=== PATIENT | male | born 1955 | race Caucasian/White ===

== ENCOUNTER 2017-01-20 11:31 | Inpatient (IN) | payer OTHER ==
[~2017-01-20] VITALS: Ht 172.7 cm; Wt 79.0 kg
--- NOTE | 2017-01-20 12:23 | ERA ---
ER Documentation Chief Complaint Date/Time DATE: 01/20/17 TIME: 12:23 Chief Complaint CP X 2 WEEKS HPI The patient is a 61-year-old male, presenting to the ER because of left-sided chest pain radiating to the left upper back with only for the last 2 weeks. The history is obtained through the son because the patient has hearing impairment. He had similar symptoms previously, complains of intermittent headache for the last 2 weeks which he took Vicodin with some relief. He denies facial pain, neck pain, chest pain with exertion/vomiting/diaphoresis abdominal pain, dysuria, diarrhea. He smokes socially, denies drinking Past medical history: hearing, impairment, history of rheumatism, hypertension, atrial fibrillation Past surgical history: Left ear cochlear implant 4 years ago, valve replacement , tricuspid valve anuloplasty ROS All systems reviewed and are negative except as per history of present illness. Medications Home Meds Reported Medications Gabapentin* (Gabapentin*) 100 Mg Capsule, 100 MG PO BID, #90 CAP 01/20/17 Hydrocodone/Acetaminophen (Mary Alice 5-325 Tablet) 1 Each Tablet, 1 EACH PO Q12 Y for PAIN, TAB 01/20/17 Lisinopril* (Lisinopril*) 10 Mg Tablet, 10 MG PO DAILY, #30 TAB 01/20/17 Isosorbide Mononitrate* (Isosorbide Mononitrate*) 30 Mg Tab.er.24h, 30 MG PO DAILY, TAB 01/20/17 Furosemide* (Lasix*) 20 Mg Tablet, 20 MG PO DAILY, TAB 01/20/17 Atorvastatin Calcium* (Atorvastatin Calcium*) 20 Mg Tablet, 20 MG PO QHS, #30 TAB 01/20/17 Carvedilol* (Carvedilol*) 3.125 Mg Tablet, 3.125 MG PO BID, #60 TAB 01/20/17 Warfarin Sodium* (Coumadin*) 2.5 Mg Tablet, 2.5 MG PO DAILY, TAB 01/20/17 Allergies Allergies: Coded Allergies: No Known Allergy (Unverified , 01/20/17) Physical Exam Vitals Vital Signs Date Time Temp Pulse Resp B/P Pulse Ox O2 Delivery O2 Flow Rate FiO2 01/20/17 16:42 80 18 155/76 99 Room Air 01/20/17 11:42 97.7 90 18 166/87 99 Physical Exam Const: No acute distress. Head: Atraumatic. Eyes: Normal Conjunctiva. ENT: Normal External Ears, Nose and Mouth. Neck: Full range of motion. No meningismus. Resp: Clear to auscultation bilaterally. Cardio: Irregularly irregular Abd: Soft, non distended, normal bowel sounds, non tender. Skin: No petechiae or rashes. Back: No midline or flank tenderness. Ext: No cyanosis, or edema. Neur: Awake and alert. No focal deficit Psych: Normal Mood and Affect. Result Diagram: 01/20/17 1230 01/20/17 1230 Results 24 hrs Laboratory Tests Test 01/20/17 12:30 White Blood Count 7.410^3/ul Red Blood Count 4.8310^6/ul Hemoglobin 14.8g/dl Hematocrit 43.7% Mean Corpuscular Volume 90.5fl Mean Corpuscular Hemoglobin 30.6pg Mean Corpuscular Hemoglobin Concent 33.9g/dl Red Cell Distribution Width 13.0% Platelet Count 94994^3/UL Mean Platelet Volume 9.4fl Neutrophils % 51.2% Lymphocytes % 36.2% Monocytes % 9.9% Eosinophils % 1.5% Basophils % 0.8% Nucleated Red Blood Cells % 0.0/100WBC Neutrophils # 3.810^3/ul Lymphocytes # 2.710^3/ul Monocytes # 0.710^3/ul Eosinophils # 0.110^3/ul Basophils # 0.110^3/ul Nucleated Red Blood Cells # 0.010^3/ul Prothrombin Time 34.3Sec Prothrombin Time Ratio 2.7 INR International Normalized Ratio 3.33 Activated Partial Thromboplast Time 44.9Sec Sodium Level 145mmol/L Potassium Level 4.3mmol/L Chloride Level 108mmol/L Carbon Dioxide Level 23mmol/L Anion Gap 18 Blood Urea Nitrogen 16mg/dl Creatinine 1.24mg/dl Glucose Level 108mg/dl Calcium Level 9.6mg/dl Magnesium Level 2.0mg/dl Total Bilirubin 0.7mg/dl Direct Bilirubin 0.00mg/dl Indirect Bilirubin 0.7mg/dl Aspartate Amino Transf (AST/SGOT) 21IU/L Alanine Aminotransferase (ALT/SGPT) 33IU/L Alkaline Phosphatase 83IU/L Troponin I 0.014ng/ml Total Protein 8.3g/dl Albumin 4.8g/dl Globulin 3.50g/dl Albumin/Globulin Ratio 1.37 Current Medications Medications (Trade) Dose Ordered Sig/Ezequiel Route PRN Reason Start Time Stop Time Status Last Admin Dose Admin Ondansetron HCl (Zofran Inj) 4 mg ONCE STAT IV 01/20/17 12:33 01/20/17 12:35 DC 01/20/17 12:40 IV Flush 10 ml 10 ml STK-MED ONCE .ROUTE 01/20/17 13:20 01/20/17 13:21 DC 01/20/17 14:15 Sodium Chloride (NS) 100 ml @ ud STK-MED ONCE .ROUTE 01/20/17 13:20 01/20/17 13:21 DC 01/20/17 14:15 Iodixanol (Visipaque Locm) 100 ml STK-MED ONCE .ROUTE 01/20/17 13:20 01/20/17 13:21 DC 01/20/17 14:16 Iodixanol 100 ml 100 ml STK-MED ONCE .ROUTE 01/20/17 13:49 01/20/17 13:50 DC 01/20/17 14:16 Sodium Chloride (NS) 500 ml @ 500 mls/hr Q1H ONCE IV 01/20/17 14:00 01/20/17 14:59 DC 01/20/17 14:00 Atorvastatin Calcium (Lipitor) 20 mg QHS PO 01/20/17 21:00 Carvedilol (Coreg) 3.125 mg BID PO 01/20/17 21:00 Furosemide (Lasix) 20 mg DAILY PO 01/21/17 09:00 Gabapentin (Neurontin) 100 mg BID PO 01/20/17 21:00 Isosorbide Mononitrate (Imdur) 30 mg DAILY PO 01/21/17 09:00 Lisinopril (Zestril) 10 mg DAILY PO 01/21/17 09:00 Warfarin Sodium (Coumadin) 2.5 mg DAILY@17 PO 01/21/17 17:00 IV Flush (NS 3 ml) 3 ml PER PROTOCOL IV 01/20/17 16:30 Ondansetron HCl (Zofran Inj) 4 mg Q6H PRN IV NAUSEA AND/OR VOMITING 01/20/17 16:30 Nitroglycerin (Nitroglycerin (Sl Tab) 0.4 Mg) 1 tab Q5M PRN SL CHEST PAIN 01/20/17 16:30 Acetaminophen (Tylenol Tab) 650 mg Q6H PRN PO PAIN LEVEL 1-3 OR FEVER 01/20/17 16:30 Acetaminophen/ Hydrocodone Bitart (Mary Alice (5/325)) 1 tab Q6H PRN PO PAIN LEVEL 4-6 01/20/17 16:30 Morphine Sulfate (morphine) 2 mg Q4H PRN IV PAIN LEVEL 7-10 01/20/17 16:30 Docusate Sodium (Colace) 100 mg Q12H PRN PO CONSTIPATION 01/20/17 16:30 Magnesium Hydroxide (Milk Of Mag) 30 ml DAILY PRN PO CONSTIPATION 01/20/17 16:30 Bisacodyl (Dulcolax Supp) 10 mg DAILY PRN HI CONSTIPATION 01/20/17 16:30 Famotidine (Pepcid) 20 mg Q12 PO 01/20/17 21:00 Procedures/MDM EKG: At 11:35 PM read by emergency physician Rate/Rhythm: Atrial fibrillation 82 beats/min QRS, ST, T-waves: No ST elevation, no T inversion and nonspecific intraventricular block, inferolateral T abnormality Impression: Abnormal EKG EKG: At 12:33 PM read by emergency physician Rate/Rhythm: Atrial fibrillation 79 beats/min QRS, ST, T-waves: No ST elevation, no T inversion , inferolateral T abnormality Impression: Abnormal EKG [place] [id number] Radiology Main Line: [phone] DIAGNOSTIC IMAGING REPORT Patient: YAKELIN DUFFY : 1955 Age: 61 Sex: M MR #: [id number] DOS: 01/20/17 1239 Ordering MD: JUWAN RITCHIE MD Location: E/R Room/Bed: PROCEDURE: CTA Chest with IV contrast. CLINICAL INDICATION: Chest pain. TECHNIQUE: The study was performed utilizing a multidetector CT scanner. Direct spiral axial sections were obtained from the thoracic inlet through the upper abdomen before and after the injection of 160 cc Visipaque 320 intravenous contrast material and reformatted at 1.25 mm. 3D, coronal and sagittal reformations were obtained. The images were reviewed on a PACS workstation. DLP = 1212.1 mGy-cm.CTDiVol = 31.0, 14.6, 64.8, 14.6 mGy. One or more of the following post reduction techniques were used: - Automated exposure control. - Adjustment of the mA and/or Kv according to patient's size. - Use of iterative reconstruction technique COMPARISON: No prior studies are available for comparison. FINDINGS: No pulmonary arterial filling defects to indicate pulmonary embolus are identified. The thoracic aorta is patent throughout its entirety. No aneurysm or stenosis is identified. The origins of the great vessels from the arch of the aorta are widely patent. Normal filling of the visualized proximal portions of the great vessels is identified. Mild atherosclerosis is noted in the arch of the aorta and scattered in the descending thoracic aorta. Mild fat stranding is seen along the left lateral aspect of the aortic arch and extends superiorly around the origins and proximal portions of the left common carotid and left subclavian arteries. Heart is large. Markedly enlarged left atrium and dilated appearing left ventricle are observed. Replacement mitral and tricuspid valves are observed. No hilar or mediastinal lymphadenopathy is identified. Calcified granulomas are seen in the right paratracheal region. The visualized portions of the inferior thyroid appear unremarkable. The arterial vasculature of the mediastinum appears normal. The thoracic esophagus appears normal. Evaluation of the lung parenchyma is limited by motion. Dependent, subsegmental atelectasis is noted in both lungs. Severe paraseptal emphysematous changes are identified in the bilateral upper lobes. Bulla are identified at the right apex. A 5 mm nodule is seen in the periphery of the right upper lobe (series 7, image 53). Small calcified granuloma is seen in the posterior right upper lobe. Atelectasis is noted in the lingula. Calcified granulomas are identified at the left apex and in the lingula. Diffuse fatty infiltration of the liver is identified. The kidneys demonstrate normal, symmetric enhancement. 7 mm cyst is identified in the anterior cortex of the right kidney. Cortical scarring is noted in the superior pole of the right kidney. Mild degenerative changes are seen in the spine with mild scoliosis. Median sternotomy wires are seen in the sternum. The subcutaneous and muscular soft tissues surrounding the chest are unremarkable. IMPRESSION: No visualized pulmonary embolus. No visualized aortic aneurysm or dissection. Fat stranding seen along the left lateral aspect of the aortic arch that extends superiorly around the origins and proximal portions of the left common carotid and left subclavian arteries. Etiology of this fat stranding is uncertain. This could reflect focal mediastinal inflammation of uncertain etiology or could represent a small amount of mediastinal hemorrhage of uncertain origin. No active extravasation is visualized. Close continued follow- up to assess the stability of this finding is recommended. Cardiomegaly with a markedly enlarged left atrium and left ventricle and replacement mitral and tricuspid valves. Calcified granulomatous disease in the mediastinum and both lungs. Moderate emphysematous changes in both lungs. 5 mm nodule in the right upper lobe. Diffuse fatty infiltration of the liver. Small sub centimeter cyst in the cortex of the right kidney. No followup unless clinically warranted is needed. Degenerative changes in the spine. Guidelines for Management of Small Pulmonary Nodules Detected on CT Scans: A statement from the Fleischner Society Single Solid Nodule: <6mm(<100mm3): Low risk: No f/u. High risk: Optional CT at 12 months. Certain pts at high risk with suspicious nodule morphology, upper lobe location, or both may warrant 12 mo f/u. 6-8mm(100-250mm3): Low risk: CT at 6-[address] at 18-24 mos. High risk: CT at 6-[address] at 18-24 mos. >8mm(>250mm3): Consider CT, PET/CT, or tissue sampling at 3 mos. Multiple Solid Nodules: Use most susp nod to guide mgmt. F/u intervals may vary according to size/risk <6mm(<100mm3): Low risk: No f/u. High risk: Optional CT at 12 months. 6-8mm(100-250mm3): Low risk: CT at 3-[address] at 18-24 mos. High risk: CT at 3-[address] at 18-24 mos. >8mm(>250mm3): Low risk: CT at 3-[address] at 18-24 mos. High risk: CT at 3-[address] at 18-24 mos. Single Subsolid Nodule: Ground Glass: In certain susp nods <6mm, consider 2 and 4 yr f/u. If solid component increases or growth develops, consider resection. Otherwise: <6mm(<100mm3): Low risk: No f/u. High risk: CT at 6-12 mos to confirm persistence, then CT every 2 yrs until 5 yrs. Part Solid: Must be >or=6mm to be part solid. CT at 3-6 mos to confirm persistence. If unchanged and solid component still <6mm, do annual CT for 5 yrs. If solid component >=6mm, consider highly suspicious. Multiple Subsolid Nodules: <6mm(<100mm3): CT at 3-6 mos. If stable, consider CT at 2 and 4 yrs. Mult <6mm pure ground glass nods usually benign but consider f/u in selected high risk pts at 2 and 4 yrs. >=6mm(>100mm3): CT at 3-6 mos. Subseq management based on most susp nodule. Reference: Radiology 2017 Special Report Call report: A call report of the findings was made to Dr. Ritchie at 2:42 PM on 01/20/2017 . RPTAT: AA .Celestino Mittal MD, Date Time Electronically viewed and signed by .Celestino Mittal MD, MD on 01/20/2017 14:46 .P/ CC: JUWAN RITCHIE MD [place] [address] Radiology Main Line: [phone] DIAGNOSTIC IMAGING REPORT Patient: YAKELIN DUFFY : 1955 Age: 61 Sex: M MR #: [id number] DOS: 01/20/17 1223 Ordering MD: JUWAN RITCHIE MD Location: E/R Room/Bed: PROCEDURE: Chest x-ray CLINICAL INDICATION: Chest pain TECHNIQUE: Chest single view COMPARISON: None FINDINGS: There is moderate cardiomegaly and an sclerotic aortic calcification. There post thoracotomy changes for cardiac valve replacement. Pulmonary vessels are normal in caliber. There is linear left perihilar atelectasis/scarring. Lungs otherwise clear. Costophrenic angles sharp. Bony thorax is unremarkable. IMPRESSION: 1. Moderate cardiomegaly and mild atherosclerotic aortic calcification. 2. Linear left perihilar atelectasis/scarring. 3. Status post mitral valve replacement RPTAT: HH .Wellington Velez MD, Date Time Electronically viewed and signed by .Wellington Velez MD, MD on 01/20/2017 13:15 .W/ CC: JUWAN RITCHIE MD [place] [address] Radiology Main Line: [phone] DIAGNOSTIC IMAGING REPORT Patient: YAKELIN DUFFY : 1955 Age: 61 Sex: M MR #: [id number] DOS: 01/20/17 0000 Ordering MD: ELEONORA RUST Location: E/R Room/Bed: PROCEDURE: CT brain without contrast CLINICAL INDICATION: Headache TECHNIQUE: CT of the brain without contrast performed on a multidetector CT scanner, with multiplanar reformats. One or more of the following dose reduction techniques were used: Automated exposure control, adjustment in mA and / or kV according to patient size, use of iterative reconstructive technique. CTDIvol = 45 mGy; DLP = 720 mGy-cm. COMPARISON: None available FINDINGS: Right cochlear implant with associated artifacts present which somewhat limit evaluation. No acute intracranial hemorrhage is identified. No extra-axial fluid collection is seen. There is no mass effect. No midline shift is identified. The ventricles and sulci are mildly enlarged compatible with volume loss. There is a punctate peripheral calcification in the right frontal region. Visualized garcia-white junctions are preserved. Atherosclerotic calcifications of the proximal intracranial arteries are noted. Right mastoidectomy defect is seen. There is mild partial right mastoid air cell opacification. Mild mucosal thickening is seen in the frontal sinuses - recesses.. IMPRESSION: 1. Somewhat limited evaluation due to artifacts from right cochlear implant, without acute intracranial pathology identified. 2. Mild volume loss 3. Punctate cerebral calcification, which may be post infectious/inflammatory, possibly sequela of neurocysticercosis. RPTAT: VV .Hussein Baker MD, Date Time Electronically viewed and signed by .Hussein Baker MD, on 01/20/2017 17:17 .O/ CC: ELEONORA RUST EKG: at 11:35 pm Read by emergency physician Rate/Rhythm: Atrial Fibrillation 82 beats/min QRS, ST, T-waves: No ST elevation, no T inversion, nonspecific intraventricular conduction block, inferolateral T abnormality Impression: Abnormal EKG EKG: at 12:33 pm Read by emergency physician Rate/Rhythm: Atrial Fibrillation 79 beats/min QRS, ST, T-waves: No ST elevation, no T inversion, inferolateral T abnormality Impression: Abnormal EKG MEDICAL MAKING DECISION: The patient is a 61-year-old male, presenting with acute chest pain of unclear etiology. INR is 3.3. He also complains of chronic headache and brain CT was negative for any acute finding. He was treated with 1 inch of nitroglycerin ointment to the chest wall for acute chest pain with good response The differential diagnoses considered include but are not limited to mediastinal inflammation, mediastinal hemorrhage of uncertain origin, acute coronary syndrome, acute myocardial infarction, pericarditis, pulmonary embolism , aortic dissection, pneumonia, pleural effusion, pneumothorax, GERD, chest wall pain. Departure Diagnosis: Primary Impression: Chest pain Additional Impression: Pulmonary nodule, right Condition: Stable Comments I discussed the findings with the patient. I discussed the patient with his physician Dr. Rust at 3:30 pm who was made aware of the lab, the treatment, the patient condition. The patient is admitted to [facility]. He is unstable for transfer to [facility] until he is evaluated by cardiac surgeon JUWAN RITCHIE MD Jan 20, 2017 12:23
[2017-01-20] MEDS ORDERED: ONDANSETRON 4 MG INJ IV STA (12:33)
[2017-01-20 12:37] LABS: BASOPHIL # 0.1 10^3/ul (0.0-0.1); BASOPHILS % 0.8 % (0.0-2.0); EOSINOPHILS # 0.1 10^3/ul (0.0-0.5); EOSINOPHILS % 1.5 % (0.0-7.0); HEMATOCRIT 43.7 % (42.0-52.0); HEMOGLOBIN 14.8 g/dl (14.0-18.0); LYMPHOCYTES # 2.7 10^3/ul (0.8-2.9); LYMPHOCYTES % 36.2 % (15.0-51.0); MEAN CORPUSCULAR HEMOGLOBIN 30.6 pg (29.0-33.0); MEAN CORPUSCULAR HGB CONC 33.9 g/dl (32.0-37.0); MEAN CORPUSCULAR VOLUME 90.5 fl (82.0-101.0); MEAN PLATELET VOLUME 9.4 fl (7.4-10.4); MONOCYTE # 0.7 10^3/ul (0.3-0.9); MONOCYTES % 9.9 % (0.0-11.0); NEUTROPHIL # 3.8 10^3/ul (1.6-7.5); NEUTROPHILS % 51.2 % (39.0-77.0); PLATELET COUNT 175 10^3/UL (140-415); RED BLOOD COUNT 4.83 10^6/ul (4.70-6.10); WHITE BLOOD COUNT 7.4 10^3/ul (4.8-10.8)
[2017-01-20] MEDS ORDERED: CARV3.1260 PO (12:47)
[2017-01-20] MEDS ORDERED: ATOR20TA38 PO (12:47)
[2017-01-20] MEDS ORDERED: WARF2.5T PO (12:47)
[2017-01-20] MEDS ORDERED: ISOS30TA5 PO (12:48)
[2017-01-20] MEDS ORDERED: LISI10TA2 PO (12:48)
[2017-01-20] MEDS ORDERED: FURO-110 PO (12:48)
[2017-01-20] MEDS ORDERED: HYDR-906 PO (12:49)
[2017-01-20] MEDS ORDERED: GABA100C14 PO (12:49)
[2017-01-20 12:59] LABS: CALCIUM 9.4 mg/dl (8.4-10.2); CREATININE 1.26 mg/dl (0.61-1.24); POTASSIUM 4.3 mmol/L (3.5-5.1)
[2017-01-20 13:10] LABS: TROPONIN-I 0.014 ng/ml (0.00-0.12)
--- NOTE | 2017-01-20 13:16 | RADRPT ---
PROCEDURE: Chest x-ray CLINICAL INDICATION: Chest pain TECHNIQUE: Chest single view COMPARISON: None FINDINGS: There is moderate cardiomegaly and an sclerotic aortic calcification. There post thoracotomy changes for cardiac valve replacement. Pulmonary vessels are normal in caliber. There is linear left perihi lar atelectasis/scarring. Lungs otherwise clear. Costophrenic angles sharp. Bony thorax is unremarka ble. IMPRESSION: 1. Moderate cardiomegaly and mild atherosclerotic aortic calcification. 2. Linear left perihilar atelectasis/scarring. 3. Status post mitral valve replacement RPTAT: HH .Wellington Velez MD, MD Date Time Electronically viewed and signed by .Wellington Velez MD, on 01/20/2017 13:15 .W/
[2017-01-20 13:18] LABS: INR 3.33; PROTIME 34.3 Sec (12.2-14.2); PT RATIO 2.7
[2017-01-20 13:19] LABS: PARTIAL THROMBOPLASTIN TIME 44.9 Sec (25.0-35.0)
[2017-01-20] MEDS ORDERED: IODIXANOL LOCM 100 ML BTL ONE ×2 (13:20→13:49)
[2017-01-20] MEDS ORDERED: SOD CHLORIDE 0.9% 100 ML ONE (13:20)
[2017-01-20 13:21] LABS: ALBUMIN 4.8 g/dl (3.3-4.9); ALBUMIN/GLOBULIN RATIO 1.37; BILIRUBIN,INDIRECT 0.7 mg/dl (0-1.1); BILIRUBIN,TOTAL 0.7 mg/dl (0.2-1.3); CALCIUM 9.6 mg/dl (8.4-10.2); CREATININE 1.24 mg/dl (0.61-1.24); POTASSIUM 4.3 mmol/L (3.5-5.1); TOTAL PROTEIN 8.3 g/dl (6.1-8.1)
[2017-01-20] MEDS ORDERED: SOD CHLORIDE 0.9% 500 ML IV ONE (14:00)
--- NOTE | 2017-01-20 14:46 | RADRPT ---
PROCEDURE: CTA Chest with IV contrast. CLINICAL INDICATION: Chest pain. TECHNIQUE: The study was performed utilizing a multidetector CT scanner. Direct spiral axial secti ons were obtained from the thoracic inlet through the upper abdomen before and after the injection o f 160 cc Visipaque 320 intravenous contrast material and reformatted at 1.25 mm. 3D, coronal and sag ittal reformations were obtained. The images were reviewed on a PACS workstation. DLP = 1212.1 mGy- cm.CTDiVol = 31.0, 14.6, 64.8, 14.6 mGy. One or more of the following post reduction techniques were used: - Automated exposure control. - Adjustment of the mA and/or Kv according to patient's size. - Use of iterative reconstruction technique COMPARISON: No prior studies are available for comparison. FINDINGS: No pulmonary arterial filling defects to indicate pulmonary embolus are identified. The thoracic aorta is patent throughout its entirety. No aneurysm or stenosis is identified. The macy gins of the great vessels from the arch of the aorta are widely patent. Normal filling of the visual ized proximal portions of the great vessels is identified. Mild atherosclerosis is noted in the arch of the aorta and scattered in the descending thoracic aorta. Mild fat stranding is seen along the left lateral aspect of the aortic arch and extends superiorly a round the origins and proximal portions of the left common carotid and left subclavian arteries. Heart is large. Markedly enlarged left atrium and dilated appearing left ventricle are observed. Rep lacement mitral and tricuspid valves are observed. No hilar or mediastinal lymphadenopathy is ident ified. Calcified granulomas are seen in the right paratracheal region. The visualized portions of t he inferior thyroid appear unremarkable. The arterial vasculature of the mediastinum appears normal. The thoracic esophagus appears normal. Evaluation of the lung parenchyma is limited by motion. Dependent, subsegmental atelectasis is noted in both lungs. Severe paraseptal emphysematous changes are identified in the bilateral upper lobes. Bulla are identified at the right apex. A 5 mm nodule is seen in the periphery of the right upper l obe (series 7, image 53). Small calcified granuloma is seen in the posterior right upper lobe. Atelectasis is noted in the lingula. Calcified granulomas are identified at the left apex and in the lingula. Diffuse fatty infiltration of the liver is identified. The kidneys demonstrate normal, symmetric enh ancement. 7 mm cyst is identified in the anterior cortex of the right kidney. Cortical scarring is n oted in the superior pole of the right kidney. Mild degenerative changes are seen in the spine with mild scoliosis. Median sternotomy wires are see n in the sternum. The subcutaneous and muscular soft tissues surrounding the chest are unremarkable . IMPRESSION: No visualized pulmonary embolus. No visualized aortic aneurysm or dissection. Fat stranding seen along the left lateral aspect of the aortic arch that extends superiorly around t he origins and proximal portions of the left common carotid and left subclavian arteries. Etiology o f this fat stranding is uncertain. This could reflect focal mediastinal inflammation of uncertain et iology or could represent a small amount of mediastinal hemorrhage of uncertain origin. No active ex travasation is visualized. Close continued follow-up to assess the stability of this finding is kyaw mmended. Cardiomegaly with a markedly enlarged left atrium and left ventricle and replacement mitral and tric uspid valves. Calcified granulomatous disease in the mediastinum and both lungs. Moderate emphysematous changes in both lungs. 5 mm nodule in the right upper lobe. Diffuse fatty infiltration of the liver. Small sub centimeter cyst in the cortex of the right kidney. No followup unless clinically warranted is needed. Degenerative changes in the spine. Guidelines for Management of Small Pulmonary Nodules Detected on CT Scans: A statement from the Flei schner Society Single Solid Nodule: <6mm(<100mm3): Low risk: No f/u. High risk: Optional CT at 12 months. Certain pts at high risk with suspicious nodule morphology, upper lobe location, or both may warrant 12 mo f/ u. 6-8mm(100-250mm3): Low risk: CT at 6-[address] at 18-24 mos. High risk: CT at 6-[address] at 18-24 mos. >8mm(>250mm3): Consider CT, PET/CT, or tissue sampling at 3 mos. Multiple Solid Nodules: Use most susp nod to guide mgmt. F/u intervals may vary according to size/r isk <6mm(<100mm3): Low risk: No f/u. High risk: Optional CT at 12 months. 6-8mm(100-250mm3): Low risk: CT at 3-[address] at 18-24 mos. High risk: CT at 3-[address] at 18-24 mos. >8mm(>250mm3): Low risk: CT at 3-[address] at 18-24 mos. High risk: CT at 3-[address] at 18-24 mos. Single Subsolid Nodule: Ground Glass: In certain susp nods <6mm, consider 2 and 4 yr f/u. If solid component increases or growth develops, consider resection. Otherwise: <6mm(<100mm3): Low risk: No f/u. High risk: CT at 6-12 mos to confirm persistence, then CT every 2 yrs until 5 yrs. Part Solid: Must be >or=6mm to be part solid. CT at 3-6 mos to confirm persistence. If unchang ed and solid component still <6mm, do annual CT for 5 yrs. If solid component >=6mm, consider highly suspicious. Multiple Subsolid Nodules: <6mm(<100mm3): CT at 3-6 mos. If stable, consider CT at 2 and 4 yrs. Mult <6mm pure ground gla ss nods usually benign but consider f/u in selected high risk pts at 2 and 4 yrs. >=6mm(>100mm3): CT at 3-6 mos. Subseq management based on most susp nodule. Reference: Radiology 2017 Special Report Call report: A call report of the findings was made to Dr. Curry at 2:42 PM on 01/20/2017 . RPTAT: AA .Celestino Mittal MD, Date Time Electronically viewed and signed by .Celestino Mittal MD, MD on 01/20/2017 14:46 .P/
--- NOTE | 2017-01-20 16:10 | HP ---
Date/Time of Note Date/Time of Note DATE: 01/20/17 TIME: 16:10 Assessment/Plan VTE Prophylaxis VTE Prophylaxis Intervention: other (Already on Coumadin) Lines/Catheters IV Catheter Type (from [facility] Saline Lock Assessment/Plan Assessment/Plan 61-year-old male with: 1. Left-sided chest pain, radiating to the back, findings on CT angiogram nonspecific but concerning for possible vascular abnormality or vasculopathy. Given the patient's cardiac history, we will rule him out for acute coronary syndrome. He does have a mechanical valve with INR within therapeutic range, I will continue his Coumadin for now. I will consult cardiothoracic surgery to review CT angiogram and further recommendations. Atrial fibrillation is controlled, continue current medication. Blood pressure control. Patient admitted to telemetry. 2. Cardiomyopathy, previous history of rheumatic fever based on records from [facility], status post valvular surgeries with mitral valve replacement with mechanical valve and also tricuspid annuloplasty approximately 20 years ago. Check 2D echocardiogram to evaluate ejection fraction, patient currently on Lasix as an outpatient. Continue Coumadin with goal INR 2.5-3.5 3. Severe headaches, seems to be primarily left-sided also, CAT scan of the head pending to rule out acute bleed. If that is negative likely patient will need CT angiogram of the head and neck to rule out vascular abnormalities. ESR and CRP pending Supportive care 4. Hypertension: Continue current medications 5. Hyperlipidemia: Continue statin therapy, check fasting lipid panel. Prophylaxis: Already anticoagulated on Coumadin, Pepcid for GI prophylaxis Disposition: CT head noncontrast pending, patient may need CT of the head and neck also, CT surgery to reevaluate CT angiogram findings in order to make sure that patient not having bleeding currently. 2D echocardiogram pending HPI/ROS Admit Date/Time Admit Date/Time Hx of Present Illness Chief complaint: Left-sided chest pain, severe headaches. History of presenting illness: This is a 61-year-old male with previous history of rheumatic fever and mitral and tricuspid valve replacement, mitral valve is mechanical, this was done in [facility] in 1996 and patient reports is been stable since then, started having severe headaches and chest pressure radiating to his back over the past 2 weeks. The symptoms have worsened over the past 48 hours, patient had his worst headache 2 days ago with ongoing nausea no photophobia no double vision. The patient also reports that he was vomiting and the pain was unbearable, she also reports episodes of chest pressure left side of the chest radiating to his back, intermittent over the past 2 weeks but worsened today. He reports nausea intermittently over the past couple of weeks and dry heaving over the past 2 days with couple episode of vomiting just bilious. No fevers, no chills, no previous history of migraine headaches. Patient has lost his hearing on his right ear and has a cochlear implant that was placed 4 years ago but did not have his hearing according to the patient. CTA chest shows Fat stranding seen along the left lateral aspect of the aortic arch that extends superiorly around the origins and proximal portions of the left common carotid and left subclavian arteries. Etiology of this fat stranding is uncertain. This could reflect focal mediastinal inflammation of uncertain etiology or could represent a small amount of mediastinal hemorrhage of uncertain origin. it is unclear if this is explaining his symptoms. Regarding his headache the patient also describes a left-sided headache that starts in the left occipital area of his head and seems to be wrapping to the frontal on the left side. CAT scan of the head noncontrast is pending, likely will need a CT angiogram of head and neck to rule out any other abnormalities. I will check ESR and CRP to rule out inflammatory disease. Patient has been on Coumadin, he has atrial fibrillation rate control, INR is therapeutic at 3.4, likely he is goal INR is 2.5-3.5 given his mechanical mitral valve. CT surgery will be consulted to review findings on CT angiogram ROS Constitutional: nausea Respiratory: no complaints Cardiovascular: chest pain (Left-sided radiating to his back) Gastrointestinal: no complaints Genitourinary: no complaints Musculoskeletal: no complaints Skin: no complaints Neurologic: headache, other (Chronic hearing loss) Endocrine: no complaints Lymphatic: no complaints Psychological: no complaints PMH/Family/Social Past Medical History History of rheumatic fever, reported mitral stenosis status post mitral valve replacement with mechanical valve and tricuspid valve annuloplasty Cardiomyopathy, unknown ejection fraction Chronic atrial fibrillation Chronic anticoagulation Hyperlipidemia Hypertension Tobacco use Past Surgical History Status post mitral valve replacement with mechanical valve, tricuspid valve annuloplasty in July 1996 in [facility] Status post right cochlear implant, 5-6 years ago Family History Significant Family History: no pertinent family hx Social History Alcohol Use: none Smoking Status: Current every day smoker (Smokes 2-3 cigarettes a day, patient really never quit.) Drug Use: none Exam/Review of Systems Vital Signs Vitals Vital Signs Date Time Temp Pulse Resp B/P Pulse Ox O2 Delivery O2 Flow Rate FiO2 01/20/17 11:42 97.7 90 18 166/87 99 Exam Constitutional: alert, oriented, other (Right cochlear implant), well developed Respiratory: clear to auscultation, normal air movement Cardiovascular: murmurs/extra sounds (Mechanical click from mechanical valve), nl pulses, regular rate and rhythm Gastrointestinal: non-tender, soft Musculoskeletal: nl extremities to inspection, other (No edema, clubbing or cyanosis) Extremities: normal pulses Neurological: MACHINE II CUTTER II-XII intact, nl mental status, nl speech, nl strength Labs Result Diagram: 01/20/17 1230 01/20/17 1230 Medications Medications Home medications : Refer to medication reconciliation on admission Procedures Procedures PROCEDURE: CTA Chest with IV contrast. CLINICAL INDICATION: Chest pain. TECHNIQUE: The study was performed utilizing a multidetector CT scanner. Direct spiral axial sections were obtained from the thoracic inlet through the upper abdomen before and after the injection of 160 cc Visipaque 320 intravenous contrast material and reformatted at 1.25 mm. 3D, coronal and sagittal reformations were obtained. The images were reviewed on a PACS workstation. DLP = 1212.1 mGy-cm.CTDiVol = 31.0, 14.6, 64.8, 14.6 mGy. One or more of the following post reduction techniques were used: - Automated exposure control. - Adjustment of the mA and/or Kv according to patient's size. - Use of iterative reconstruction technique COMPARISON: No prior studies are available for comparison. FINDINGS: No pulmonary arterial filling defects to indicate pulmonary embolus are identified. The thoracic aorta is patent throughout its entirety. No aneurysm or stenosis is identified. The origins of the great vessels from the arch of the aorta are widely patent. Normal filling of the visualized proximal portions of the great vessels is identified. Mild atherosclerosis is noted in the arch of the aorta and scattered in the descending thoracic aorta. Mild fat stranding is seen along the left lateral aspect of the aortic arch and extends superiorly around the origins and proximal portions of the left common carotid and left subclavian arteries. Heart is large. Markedly enlarged left atrium and dilated appearing left ventricle are observed. Replacement mitral and tricuspid valves are observed. No hilar or mediastinal lymphadenopathy is identified. Calcified granulomas are seen in the right paratracheal region. The visualized portions of the inferior thyroid appear unremarkable. The arterial vasculature of the mediastinum appears normal. The thoracic esophagus appears normal. Evaluation of the lung parenchyma is limited by motion. Dependent, subsegmental atelectasis is noted in both lungs. Severe paraseptal emphysematous changes are identified in the bilateral upper lobes. Bulla are identified at the right apex. A 5 mm nodule is seen in the periphery of the right upper lobe (series 7, image 53). Small calcified granuloma is seen in the posterior right upper lobe. Atelectasis is noted in the lingula. Calcified granulomas are identified at the left apex and in the lingula. Diffuse fatty infiltration of the liver is identified. The kidneys demonstrate normal, symmetric enhancement. 7 mm cyst is identified in the anterior cortex of the right kidney. Cortical scarring is noted in the superior pole of the right kidney. Mild degenerative changes are seen in the spine with mild scoliosis. Median sternotomy wires are seen in the sternum. The subcutaneous and muscular soft tissues surrounding the chest are unremarkable. IMPRESSION: No visualized pulmonary embolus. No visualized aortic aneurysm or dissection. Fat stranding seen along the left lateral aspect of the aortic arch that extends superiorly around the origins and proximal portions of the left common carotid and left subclavian arteries. Etiology of this fat stranding is uncertain. This could reflect focal mediastinal inflammation of uncertain etiology or could represent a small amount of mediastinal hemorrhage of uncertain origin. No active extravasation is visualized. Close continued follow- up to assess the stability of this finding is recommended. Cardiomegaly with a markedly enlarged left atrium and left ventricle and replacement mitral and tricuspid valves. Calcified granulomatous disease in the mediastinum and both lungs. Moderate emphysematous changes in both lungs. 5 mm nodule in the right upper lobe. Diffuse fatty infiltration of the liver. Small sub centimeter cyst in the cortex of the right kidney. No followup unless clinically warranted is needed. Degenerative changes in the spine. EKG: Reviewed, both EKGs in the emergency department showing controlled atrial fibrillation with heart rate 70-80s. No acute ischemic changes. ELEONORA RUST Jan 20, 2017 16:10
[2017-01-20] MEDS ORDERED: NACL 0.9% 3 ML SYG IV SCH (16:30)
[2017-01-20] MEDS ORDERED: NITROGLYCERIN (SL) 0.4 MG TAB SL PRN (16:30)
[2017-01-20] MEDS ORDERED: ONDANSETRON 4 MG INJ IV PRN (16:30)
[2017-01-20] MEDS ORDERED: ACETAMINOPHEN 325 MG TAB PO PRN (16:30)
[2017-01-20] MEDS ORDERED: BISACODYL 10 MG SUPP PR PRN (16:30)
[2017-01-20] MEDS ORDERED: DOCUSATE SODIUM 100 MG CAP PO PRN (16:30)
[2017-01-20] MEDS ORDERED: MAGNESIUM HYDROXIDE 30ML CUP PO PRN (16:30)
--- NOTE | 2017-01-20 17:18 | RADRPT ---
PROCEDURE: CT brain without contrast CLINICAL INDICATION: Headache TECHNIQUE: CT of the brain without contrast performed on a multidetector CT scanner, with multiplan ar reformats. One or more of the following dose reduction techniques were used: Automated exposure control, adjustment in mA and / or kV according to patient size, use of iterative reconstructive lina hnique. CTDIvol = 45 mGy; DLP = 720 mGy-cm. COMPARISON: None available FINDINGS: Right cochlear implant with associated artifacts present which somewhat limit evaluation. No acute i ntracranial hemorrhage is identified. No extra-axial fluid collection is seen. There is no mass effect. No midline shift is identified. The ventricles and sulci are mildly enlarged compatible with volume loss. There is a punctate peripheral calcification in the right frontal region. Visualized garcia-white junc tions are preserved. Atherosclerotic calcifications of the proximal intracranial arteries are noted. Right mastoidectomy defect is seen. There is mild partial right mastoid air cell opacification. Mild mucosal thickening is seen in the frontal sinuses - recesses.. IMPRESSION: 1. Somewhat limited evaluation due to artifacts from right cochlear implant, without acute intracra nial pathology identified. 2. Mild volume loss 3. Punctate cerebral calcification, which may be post infectious/inflammatory, possibly sequela of neurocysticercosis. RPTAT: VV .Hussein Baker MD, Date Time Electronically viewed and signed by .Hussein Baker MD, MD on 01/20/2017 17:17 .O/
[2017-01-20] MEDS ORDERED: NITROGLYCERIN 2% 1 GM OINT PKT TD ONE (18:30)
[2017-01-20] MEDS: HYDROCODONE/APAP (5/325) TAB PO PRN (20:53)
[2017-01-20] MEDS: morphine 2 MG INJ IV PRN (20:57)
[2017-01-20 21:43] LABS: TROPONIN-I 0.017 ng/ml (0.00-0.12)
[2017-01-20 21:45] LABS: CK-MB 1.23 ng/ml (0.0-2.4)
[2017-01-20 22:23] VITALS: TEMP 97.7
[2017-01-20 23:00] VITALS: BP 149/68; PULSE 83; RESP 20; Ht 172.7 cm; Wt 79.0 kg
[2017-01-21] VITALS (14 sets, daily range): BP systolic 103–149; BP diastolic 50–68; PULSE 40–134; RESP 17–18
[2017-01-21] MEDS: FAMOTIDINE 20 MG TAB PO SCH ×3 (00:53→21:46)
[2017-01-21] MEDS: ATORVASTATIN 20 MG TAB PO SCH ×2 (00:53→21:46)
[2017-01-21] MEDS: GABAPENTIN 100 MG CAP PO SCH ×3 (00:53→21:46)
[2017-01-21 01:54] LABS: TROPONIN-I 0.037 ng/ml (0.00-0.12)
[2017-01-21 01:59] LABS: CK-MB 1.44 ng/ml (0.0-2.4)
[2017-01-21] MEDS: morphine 2 MG INJ IV PRN (04:26)
[2017-01-21 07:39] LABS: BASOPHIL # 0.1 10^3/ul (0.0-0.1); BASOPHILS % 0.7 % (0.0-2.0); EOSINOPHILS # 0.1 10^3/ul (0.0-0.5); EOSINOPHILS % 1.4 % (0.0-7.0); HEMATOCRIT 37.3 % (42.0-52.0); HEMOGLOBIN 12.3 g/dl (14.0-18.0); LYMPHOCYTES % 27.5 % (15.0-51.0); MEAN CORPUSCULAR HEMOGLOBIN 29.9 pg (29.0-33.0); MEAN CORPUSCULAR VOLUME 90.8 fl (82.0-101.0); MEAN PLATELET VOLUME 10.2 fl (7.4-10.4); MONOCYTE # 0.7 10^3/ul (0.3-0.9); MONOCYTES % 9.9 % (0.0-11.0); NEUTROPHIL # 4.3 10^3/ul (1.6-7.5); NEUTROPHILS % 60.1 % (39.0-77.0); PLATELET COUNT 138 10^3/UL (140-415); RED BLOOD COUNT 4.11 10^6/ul (4.70-6.10); RED CELL DISTRIBUTION WIDTH 13.2 % (11.5-14.5); WHITE BLOOD COUNT 7.2 10^3/ul (4.8-10.8)
[2017-01-21 07:56] LABS: INR 3.56; PROTIME 36.2 Sec (12.2-14.2); PT RATIO 2.8
[2017-01-21 08:10] LABS: CALCIUM 8.8 mg/dl (8.4-10.2); CHOL/HDL RATIO 2.8 RATIO; CREATININE 1.07 mg/dl (0.61-1.24); MAGNESIUM 1.9 mg/dl (1.7-2.5)
[2017-01-21] MEDS: LISINOPRIL 10 MG TAB PO SCH (09:29)
[2017-01-21] MEDS: FUROSEMIDE 20 MG TAB PO SCH (09:29)
[2017-01-21] MEDS: ISOSORBIDE MONONITRATE(SR)30 MG TAB PO SCH (09:29)
[2017-01-21] MEDS: HYDROCODONE/APAP (5/325) TAB PO PRN (11:09)
--- NOTE | 2017-01-21 12:46 | RADRPT ---
Echocardiogram Report Patient Name: YAKELIN DUFFY Gender: Male Date: 1955 Study Date: 21-Jan-2017 [employer] Helper: Rj [facility] Location: 5563-A Ref. Physician: CURTIS RUST Quality: Adequate Procedures: Transthoracic echocardiogram with complete 2D, M-Mode, and doppler examination. Indications: Chest pain and hx of valve replacement. 2D/M Mode Doppler Measurement Value Normal Ranges Measurement Value Normal Ranges LVIDd 2D 6.7 3.5 - 5.6 cm AV Peak Bashir 1.2 m/sec LVIDs 2D 5.9 2.1 - 4.1 cm AV Peak PG 6.0 mmHg FS 2D 11.9 % AI Peak PG 34.0 mmHg LVPWd 2D 1.5 0.6 - 1.1 cm AI Peak Bashir 2.9 m/sec IVSd 2D 1.5 0.6 - 1.1 cm AI PHT 725.0 msec IVS/LVPW 2D 1.0 LVOT Peak Bashir 0.7 m/sec AoR Diam 2D 3.1 2.0 - 3.7 cm LVOT Peak PG 2.0 mmHg LA/Ao 2D 2 0 - 1 MV E Peak Bashir 1.7 m/sec EDV 2D 294.0 cm3 MV Peak Bashir 1.8 m/sec ESV 2D 201.0 cm3 MV Peak PG 13.0 mmHg LA Dimen 2D 6.0 2.3 - 4.0 cm MV Mean Bashir 1.0 m/sec MV Mean PG 5.0 mmHg MV Decel Time 243 msec MV VTI 27.4 cm MR Peak PG 177.0 mmHg MR Peak Bashir 6.7 m/sec TR Peak Bashir 2.9 m/sec TR Peak PG 34.0 mmHg RVSP 49.0 mmHg Findings Left Ventricle: Moderate concentric left ventricular hypertrophy. Moderate enlargement of left ventricle cavity. Severe global left ventricular systolic dysfunction. Ejection fraction is visually estimated at 25 %. Right Ventricle: Normal right ventricular size. Mild right ventricular systolic dysfunction. Left Atrium: There is severe enlargement of left atrium. Right Atrium: The right atrium is normal in size. Mitral Valve: Mitral Valve Mechanical Prosthesis. MeanPG 5.00 mmHg. Aortic Valve: No significant aortic stenosis. Aortic cusps appear mildly calcified. Mild aortic valve regurgitation. Tricuspid Valve: Normal appearance of the tricuspid valve. Estimated peak PA systolic pressure 49 mmHg. There is mild tricuspid regurgitation. Pulmonic Valve: Normal pulmonic valve appearance. There is trace pulmonic regurgitation. Pericardium: Normal pericardium with no significant pericardial effusion. Aorta: Normal aortic root. IVC: Dilated inferior vena cava with poor inspiratory collapse consistent with elevated right atrial pressures. Conclusions 1.Moderate concentric left ventricular hypertrophy. Moderate enlargement of left ventricle cavity. Severe global left ventricular systolic dysfunction. Ejection fraction is visually estimated at 25 %. 2.Normal right ventricular size. Mild right ventricular systolic dysfunction. 3.There is severe enlargement of left atrium. 4.The right atrium is normal in size. 5.Mitral Valve Mechanical Prosthesis. MeanPG 5.00 mmHg. 6.No significant aortic stenosis. Aortic cusps appear mildly calcified. Mild aortic valve regurgitation. 7.Normal appearance of the tricuspid valve. Estimated peak PA systolic pressure 49 mmHg. There is mild tricuspid regurgitation. 8.Normal pericardium with no significant pericardial effusion. Electronically Signed By: Salomon Mehta 21-Jan-2017 12:45:57 -0700 Patient Name: YAKELIN DUFFY Study Date: 21-Jan-[id number]
--- NOTE | 2017-01-21 13:37 | PN ---
Date/Time of Note Date/Time of Note DATE: 01/21/17 TIME: 13:09 Assessment/Plan VTE Prophylaxis VTE Prophylaxis Intervention: other (On Coumadin with INR 3.5, status post mitral mechanical valve) Lines/Catheters IV [facility] [place] [facility] Assessment/Plan Assessment/Plan 61-year-old male with: 1. Left-sided chest pain, radiating to the back, findings on CT angiogram nonspecific but concerning for possible vascular abnormality or vasculopathy. Cardiac enzymes negative 3, however patient with ejection fraction of 25%, he is in A. fib but has a tendency to drop his heart rate down to the 40s with delayed response Cardiology evaluation pending. CT surgery evaluation pending. Continue current medications for now. 2. Cardiomyopathy, previous history of rheumatic fever based on records from [facility], status post valvular surgeries with mitral valve replacement with mechanical valve and also tricuspid annuloplasty approximately 20 years ago. 2D echocardiogram as expected with impaired ejection fraction down to 25%, continue diuretics for now. Given the delayed response with his atrial fibrillation, will consult cardiology for evaluation. Continue Coumadin with goal INR 2.5-3.5 3. Chronic atrial fibrillation, again observed episodes of delayed response, on Coumadin already, INR of 3.5 today. Will hold his Coumadin dosing today. 4. Severe headaches, seems to be primarily left-sided also, CAT scan of the head noncontrast negative however patient again last night apparently had a episode of severe left-sided headache, CT angiogram of the head and neck pending. ESR and CRP within normal limit. 4. Hypertension: Continue current medications 5. Hyperlipidemia: Continue statin therapy. Prophylaxis: Already anticoagulated on Coumadin, Pepcid for GI prophylaxis Disposition: CTA head and neck, CT surgery to reevaluate CT angiogram findings in order to make sure that patient not having bleeding currently. Cardiology evaluation. Subjective 24 Hr Interval Summary Free Text/Dictation Patient with hearing impairment, right cochlear implant in place. Still complaining of a 5 out of 10 left-sided headache, occipital and going to the peritoneal frontal area, or left-sided seems to be originating at the back of his head. CTA head and neck pending. Patient to be evaluated by cardiothoracic surgery today regarding CT findings. Given ejection fraction of 25%, cardiology evaluation also pending. Patient in A. fib, occasional heart rate in the 40s. Exam/Review of Systems Vital Signs Vitals Vital Signs Date Time Temp Pulse Resp B/P Pulse Ox O2 Delivery O2 Flow Rate FiO2 01/21/17 12:06 97.4 65 18 103/50 93 01/20/17 23:00 Room Air Intake and Output 01/20/17 01/20/17 01/21/17 15:00 23:00 07:00 Intake Total 200 ml Balance 200 ml Exam Constitutional: alert, oriented, well developed Respiratory: clear to auscultation, normal air movement Cardiovascular: irregular rhythm (Atrial fibrillation, occasional heart rate in the 40s) Gastrointestinal: non-tender, soft Musculoskeletal: nl extremities to inspection Extremities: normal pulses Neurological: [employer] II-XII intact, nl mental status, nl speech, nl strength Results Result Diagram: 01/21/1738 01/21/1738 Results 24 hrs Laboratory Tests Test 01/20/17 20:40 01/20/17 20:46 01/21/17 00:58 01/21/17 06:38 Creatine Kinase 87 95 Creatine Kinase Index 1.4 1.5 Creatinine Kinase MB (Mass) 1.23 1.44 Troponin I 0.017 0.037 C-Reactive Protein < 0.5 White Blood Count 7.2 Red Blood Count 4.11 L Hemoglobin 12.3 L Hematocrit 37.3 L Mean Corpuscular Volume 90.8 Mean Corpuscular Hemoglobin 29.9 Mean Corpuscular Hemoglobin Concent 33.0 Red Cell Distribution Width 13.2 Platelet Count 138 #L Mean Platelet Volume 10.2 Neutrophils % 60.1 Lymphocytes % 27.5 Monocytes % 9.9 Eosinophils % 1.4 Basophils % 0.7 Nucleated Red Blood Cells % 0.0 Neutrophils # 4.3 Lymphocytes # 2.0 Monocytes # 0.7 Eosinophils # 0.1 Basophils # 0.1 Nucleated Red Blood Cells # 0.0 Prothrombin Time 36.2 H Prothrombin Time Ratio 2.8 INR International Normalized Ratio 3.56 Sodium Level 142 Potassium Level 4.0 Chloride Level 109 Carbon Dioxide Level 27 Anion Gap 10 # Blood Urea Nitrogen 15 Creatinine 1.07 Glucose Level 109 Hemoglobin A1c 6.0 H Calcium Level 8.8 Magnesium Level 1.9 Triglycerides Level 102 Cholesterol Level 113 LDL Cholesterol, Calculated 53 HDL Cholesterol 40 Cholesterol/HDL Ratio 2.8 Imaging Free Text/Dictation PROCEDURE: CT brain without contrast CLINICAL INDICATION: Headache TECHNIQUE: CT of the brain without contrast performed on a multidetector CT scanner, with multiplanar reformats. One or more of the following dose reduction techniques were used: Automated exposure control, adjustment in mA and / or kV according to patient size, use of iterative reconstructive technique. CTDIvol = 45 mGy; DLP = 720 mGy-cm. COMPARISON: None available FINDINGS: Right cochlear implant with associated artifacts present which somewhat limit evaluation. No acute intracranial hemorrhage is identified. No extra-axial fluid collection is seen. There is no mass effect. No midline shift is identified. The ventricles and sulci are mildly enlarged compatible with volume loss. There is a punctate peripheral calcification in the right frontal region. Visualized garcia-white junctions are preserved. Atherosclerotic calcifications of the proximal intracranial arteries are noted. Right mastoidectomy defect is seen. There is mild partial right mastoid air cell opacification. Mild mucosal thickening is seen in the frontal sinuses - recesses.. IMPRESSION: 1. Somewhat limited evaluation due to artifacts from right cochlear implant, without acute intracranial pathology identified. 2. Mild volume loss 3. Punctate cerebral calcification, which may be post infectious/inflammatory, possibly sequela of neurocysticercosis. RPTAT: VV Medications Medications Current Medications Atorvastatin Calcium (Lipitor) 20 mg QHS PO Last administered on 01/21/17 00: 53; Admin Dose 20 MG; Start 01/20/17 at 21:00 Carvedilol (Coreg) 3.125 mg BID PO Last administered on 01/21/17 09:29; Admin Dose 3.125 MG; Start 01/20/17 at 21:00 Furosemide (Lasix) 20 mg DAILY PO Last administered on 01/21/17 09:29; Admin Dose 20 MG; Start 01/21/17 at 09:00 Gabapentin (Neurontin) 100 mg BID PO Last administered on 01/21/17 09:28; Admin Dose 100 MG; Start 01/20/17 at 21:00 Isosorbide Mononitrate (Imdur) 30 mg DAILY PO Last administered on 01/21/17 09:29; Admin Dose 30 MG; Start 01/21/17 at 09:00 Lisinopril (Zestril) 10 mg DAILY PO Last administered on 01/21/17 09:29; Admin Dose 10 MG; Start 01/21/17 at 09:00 Warfarin Sodium (Coumadin) 2.5 mg DAILY@17 PO ; Start 01/21/17 at 17:00; Status Future Hold Ondansetron HCl (Zofran Inj) 4 mg Q6H PRN IV NAUSEA AND/OR VOMITING Last administered on 01/21/17 04:57; Admin Dose 4 MG; Start 01/20/17 at 16:30 Nitroglycerin (Nitroglycerin (Sl Tab) 0.4 Mg) 1 tab Q5M PRN SL CHEST PAIN; Start 01/20/17 at 16:30 Acetaminophen (Tylenol Tab) 650 mg Q6H PRN PO PAIN LEVEL 1-3 OR FEVER; Start 01/20/17 at 16:30 Acetaminophen/ Hydrocodone Bitart ([place] (5/325)) 1 tab Q6H PRN PO PAIN LEVEL 4 -6 Last administered on 01/21/17 11:09; Admin Dose 1 TAB; Start 01/20/17 at 16:30 Morphine Sulfate (morphine) 2 mg Q4H PRN IV PAIN LEVEL 7-10 Last administered on 01/21/17 04:26; Admin Dose 2 MG; Start 01/20/17 at 16:30 Docusate Sodium (Colace) 100 mg Q12H PRN PO CONSTIPATION; Start 01/20/17 at 16 :30 Magnesium Hydroxide (Milk Of Mag) 30 ml DAILY PRN PO CONSTIPATION; Start 01/20 at 16:30 Bisacodyl (Dulcolax Supp) 10 mg DAILY PRN [place] CONSTIPATION; Start 01/20/17 at 16:30 Famotidine (Pepcid) 20 mg Q12 PO Last administered on 01/21/17 09:29; Admin Dose 20 MG; Start 01/20/17 at 21:00 Procedures Procedures Echocardiogram Report Patient Name: YAKELIN DUFFY Gender: Male Date: 1955 Study Date: 21-Jan-2017 Quality Control Auditor: Rj [facility] Location: [facility] Ref. Physician: CURTIS RUST Quality: Adequate Procedures: Transthoracic echocardiogram with complete 2D, M-Mode, and doppler examination. Indications: Chest pain and hx of valve replacement. 2D/M Mode Doppler Measurement Value Normal Ranges Measurement Value Normal Ranges LVIDd 2D 6.7 3.5 - 5.6 cm AV Peak Bashir 1.2 m/sec LVIDs 2D 5.9 2.1 - 4.1 cm AV Peak PG 6.0 mmHg FS 2D 11.9 % AI Peak PG 34.0 mmHg LVPWd 2D 1.5 0.6 - 1.1 cm AI Peak Bashir 2.9 m/sec IVSd 2D 1.5 0.6 - 1.1 cm AI PHT 725.0 msec IVS/LVPW 2D 1.0 LVOT Peak Bashir 0.7 m/sec AoR Diam 2D 3.1 2.0 - 3.7 cm LVOT Peak PG 2.0 mmHg LA/Ao 2D 2 0 - 1 MV E Peak Bashir 1.7 m/sec EDV 2D 294.0 cm3 MV Peak Bashir 1.8 m/sec ESV 2D 201.0 cm3 MV Peak PG 13.0 mmHg LA Dimen 2D 6.0 2.3 - 4.0 cm MV Mean Bashir 1.0 m/sec MV Mean PG 5.0 mmHg MV Decel Time 243 msec MV VTI 27.4 cm MR Peak PG 177.0 mmHg MR Peak Bashir 6.7 m/sec TR Peak Bashir 2.9 m/sec TR Peak PG 34.0 mmHg RVSP 49.0 mmHg Findings Left Ventricle: Moderate concentric left ventricular hypertrophy. Moderate enlargement of left ventricle cavity. Severe global left ventricular systolic dysfunction. Ejection fraction is visually estimated at 25 %. Right Ventricle: Normal right ventricular size. Mild right ventricular systolic dysfunction. Left Atrium: There is severe enlargement of left atrium. Right Atrium: The right atrium is normal in size. Mitral Valve: Mitral Valve Mechanical Prosthesis. MeanPG 5.00 mmHg. Aortic Valve: No significant aortic stenosis. Aortic cusps appear mildly calcified. Mild aortic valve regurgitation. Tricuspid Valve: Normal appearance of the tricuspid valve. Estimated peak PA systolic pressure 49 mmHg. There is mild tricuspid regurgitation. Pulmonic Valve: Normal pulmonic valve appearance. There is trace pulmonic regurgitation. Pericardium: Normal pericardium with no significant pericardial effusion. Aorta: Normal aortic root. IVC: Dilated inferior vena cava with poor inspiratory collapse consistent with elevated right atrial pressures. Conclusions 1. Moderate concentric left ventricular hypertrophy. Moderate enlargement of left ventricle cavity. Severe global left ventricular systolic dysfunction. Ejection fraction is visually estimated at 25 %. 2. Normal right ventricular size. Mild right ventricular systolic dysfunction. 3. There is severe enlargement of left atrium. 4. The right atrium is normal in size. 5. Mitral Valve Mechanical Prosthesis. MeanPG 5.00 mmHg. 6. No significant aortic stenosis. Aortic cusps appear mildly calcified. Mild aortic valve regurgitation. 7. Normal appearance of the tricuspid valve. Estimated peak PA systolic pressure 49 mmHg. There is mild tricuspid regurgitation. 8. Normal pericardium with no significant pericardial effusion. Electronically Signed By: Salomon Mehta 21-Jan-2017 12:45:57 -0700 ELEONORA RUST Jan 21, 2017 13:22
[2017-01-21] MEDS ORDERED: WARFARIN 2.5 MG TAB PO SCH (17:00)
--- NOTE | 2017-01-21 17:26 | CONS ---
Date/Time of Note Date/Time of Note DATE: 01/21/17 TIME: 17:21 Assessment/Plan Assessment/Plan Additional Assessment/Plan Left-sided chest, head, back and neck pain Severe cardia myopathy with ejection fraction 25% History of mitral valve replacement Atrial fibrillation -History was obtained from medical chart given patient is deaf and multiple attempts were made to contact patient's son and unsuccessful. Serial cardiac enzymes are negative, echocardiogram with severe cardia myopathy but appears global systolic dysfunction. Given his bradycardia, would hold beta-loreto at the current time. Patient with CT chest with evidence of possible inflammation around the aortic arch but no evidence of extravasation. He is undergoing CT surgery evaluation. Given negative CRP and ESR, inflammatory process is less likely. Patient awaiting further head and neck imaging. Consultation Date/Type/Reason Admit Date/Time Type of Consultation: cv Reason for Consultation Cardiomyopathy Hx of Present Illness This is a 61-year-old male with past medical history mitral valve replacement likely tricuspid valve angioplasty, cardiomyopathy who presents with symptoms of left-sided body pain including left-sided chest pain, neck pain, headache and back pain. Patient admitted for further evaluation care and echocardiogram was ordered which demonstrated decreased systolic ejection fraction and for this reason cardiology consultation was requested. History is obtained from medical chart. Patient tells me he is deaf. Multiple attempts were made to contact his son but unsuccessful and patient unable to give me history. Respiratory: no complaints Cardiovascular: chest pain (Left-sided radiating to his back) Gastrointestinal: no complaints Genitourinary: no complaints Musculoskeletal: no complaints Skin: no complaints Neurologic: headache, other (Chronic hearing loss) Lymphatic: no complaints Psychological: no complaints Past Medical History Atrial fibrillation Medical History: congestive heart failure Past Surgical History Mitral valve replacement, mechanical as well as likely tricuspid valve annuloplasty Social History Alcohol Use: none Smoking Status: Current every day smoker Drug Use: none Exam/Review of Systems Vital Signs Vitals Vital Signs Date Time Temp Pulse Resp B/P Pulse Ox O2 Delivery O2 Flow Rate FiO2 01/21/17 15:45 97.9 57 18 110/53 98 01/20/17 23:00 Room Air Intake and Output 01/20/17 01/20/17 01/21/17 15:00 23:00 07:00 Intake Total 200 ml Balance 200 ml Exam No apparent distress Constitutional: alert, oriented Head: normocephalic Respiratory: other (Coarse breath sounds bilaterally, no wheezing) Cardiovascular: irregular rhythm, other (S1-S2 heard), systolic murmur Gastrointestinal: bowel sounds, non-tender, soft Extremities: other (No edema) Results Result Diagram: 01/21/1738 01/21/17637 Results 24 hrs Laboratory Tests Test 01/20/17 20:40 01/20/17 20:46 01/21/17 00:58 01/21/17 06:38 Creatine Kinase 87 95 Creatine Kinase Index 1.4 1.5 Creatinine Kinase MB (Mass) 1.23 1.44 Troponin I 0.017 0.037 C-Reactive Protein < 0.5 White Blood Count 7.2 Red Blood Count 4.11 L Hemoglobin 12.3 L Hematocrit 37.3 L Mean Corpuscular Volume 90.8 Mean Corpuscular Hemoglobin 29.9 Mean Corpuscular Hemoglobin Concent 33.0 Red Cell Distribution Width 13.2 Platelet Count 138 #L Mean Platelet Volume 10.2 Neutrophils % 60.1 Lymphocytes % 27.5 Monocytes % 9.9 Eosinophils % 1.4 Basophils % 0.7 Nucleated Red Blood Cells % 0.0 Neutrophils # 4.3 Lymphocytes # 2.0 Monocytes # 0.7 Eosinophils # 0.1 Basophils # 0.1 Nucleated Red Blood Cells # 0.0 Prothrombin Time 36.2 H Prothrombin Time Ratio 2.8 INR International Normalized Ratio 3.56 Sodium Level 142 Potassium Level 4.0 Chloride Level 109 Carbon Dioxide Level 27 Anion Gap 10 # Blood Urea Nitrogen 15 Creatinine 1.07 Glucose Level 109 Hemoglobin A1c 6.0 H Calcium Level 8.8 Magnesium Level 1.9 Triglycerides Level 102 Cholesterol Level 113 LDL Cholesterol, Calculated 53 HDL Cholesterol 40 Cholesterol/HDL Ratio 2.8 Medications Medications Current Medications Atorvastatin Calcium (Lipitor) 20 mg QHS PO Last administered on 01/21/17 00: 53; Admin Dose 20 MG; Start 01/20/17 at 21:00 Carvedilol (Coreg) 3.125 mg BID PO Last administered on 01/21/17 09:29; Admin Dose 3.125 MG; Start 01/20/17 at 21:00 Furosemide (Lasix) 20 mg DAILY PO Last administered on 01/21/17 09:29; Admin Dose 20 MG; Start 01/21/17 at 09:00 Gabapentin (Neurontin) 100 mg BID PO Last administered on 01/21/17 09:28; Admin Dose 100 MG; Start 01/20/17 at 21:00 Isosorbide Mononitrate (Imdur) 30 mg DAILY PO Last administered on 01/21/17 09:29; Admin Dose 30 MG; Start 01/21/17 at 09:00 Lisinopril (Zestril) 10 mg DAILY PO Last administered on 01/21/17 09:29; Admin Dose 10 MG; Start 01/21/17 at 09:00 Warfarin Sodium (Coumadin) 2.5 mg DAILY@17 PO ; Start 01/21/17 at 17:00; Status Future Hold Ondansetron HCl (Zofran Inj) 4 mg Q6H PRN IV NAUSEA AND/OR VOMITING Last administered on 01/21/17 04:57; Admin Dose 4 MG; Start 01/20/17 at 16:30 Nitroglycerin (Nitroglycerin (Sl Tab) 0.4 Mg) 1 tab Q5M PRN SL CHEST PAIN; Start 01/20/17 at 16:30 Acetaminophen (Tylenol Tab) 650 mg Q6H PRN PO PAIN LEVEL 1-3 OR FEVER; Start 01/20/17 at 16:30 Acetaminophen/ Hydrocodone Bitart ([place] (5/325)) 1 tab Q6H PRN PO PAIN LEVEL 4 -6 Last administered on 01/21/17 11:09; Admin Dose 1 TAB; Start 01/20/17 at 16:30 Morphine Sulfate (morphine) 2 mg Q4H PRN IV PAIN LEVEL 7-10 Last administered on 01/21/17 04:26; Admin Dose 2 MG; Start 01/20/17 at 16:30 Docusate Sodium (Colace) 100 mg Q12H PRN PO CONSTIPATION; Start 01/20/17 at 16 :30 Magnesium Hydroxide (Milk Of Mag) 30 ml DAILY PRN PO CONSTIPATION; Start 01/20 at 16:30 Bisacodyl (Dulcolax Supp) 10 mg DAILY PRN [place] CONSTIPATION; Start 01/20/17 at 16:30 Famotidine (Pepcid) 20 mg Q12 PO Last administered on 01/21/17 09:29; Admin Dose 20 MG; Start 01/20/17 at 21:00 Procedures Procedures ECG done yesterday demonstrates atrial fibrillation at 79 bpm, QRS 128 ms with intraventricular conduction delay, T-wave abnormalities Salomon Mehta DO Jan 21, 2017 17:26
[2017-01-22] VITALS (9 sets, daily range): BP systolic 120–170; BP diastolic 57–74; PULSE 72–82; RESP 17–18
--- NOTE | 2017-01-22 02:31 | CONS ---
DATE OF ADMISSION: 01/20/2017 DATE OF CONSULTATION: REASON FOR CONSULTATION: Chest pain. Thank you, Dr. Rust, for asking me to see this patient. HISTORY OF PRESENT ILLNESS: This is a 61-year-old male who was admitted because of chest pain, left shoulder pain at present for the past several days. CAT scan of the chest has been done, which karol ws inflammatory tissue in the mediastinum and around the aorta, no signs of extravasation or leak in the aorta, no dissection, no aneurysmal formation. The patient is unable to give us any furt her information. The patient does have a mechanical valve and his INR is in therapeutic range at 3. 4. PAST MEDICAL HISTORY: Cardiomyopathy, hypertension, hyperlipidemia, history of headaches. Also, de afness. PAST SURGICAL HISTORY: Mitral valve replacement, tricuspid valve annuloplasty, cochlear implant. PHYSICAL EXAMINATION: GENERAL: The patient is awake, does not talk. VITAL SIGNS: Blood pressure is 110/53, pulse is 58, respirations 18, saturation 98%, temperature is 97.9. CARDIOVASCULAR: Normal S1, S2. LUNGS: Clear. ABDOMEN: Soft. EXTREMITIES: Warm. IMPRESSION: Mediastinal inflammation, no signs of aortic rupture, no aneurysm, no dissection. RECOMMENDATIONS: Would continue supportive care with repeat CAT scan of the chest in 1 week to reev aluate the inflammatory process. Discuss with the referring physicians. Dictated By: JAMEL BRITTON/SHWETHA Conf#: [id number] DID#: [id number] CC: ELEONORA RUST MD;*EndCC*
[2017-01-22 08:34] LABS: BASOPHIL # 0.1 10^3/ul (0.0-0.1); BASOPHILS % 0.7 % (0.0-2.0); EOSINOPHILS # 0.1 10^3/ul (0.0-0.5); EOSINOPHILS % 1.3 % (0.0-7.0); HEMATOCRIT 40.1 % (42.0-52.0); HEMOGLOBIN 13.1 g/dl (14.0-18.0); LYMPHOCYTES # 2.4 10^3/ul (0.8-2.9); LYMPHOCYTES % 31.9 % (15.0-51.0); MEAN CORPUSCULAR HEMOGLOBIN 29.8 pg (29.0-33.0); MEAN CORPUSCULAR HGB CONC 32.7 g/dl (32.0-37.0); MEAN CORPUSCULAR VOLUME 91.1 fl (82.0-101.0); MEAN PLATELET VOLUME 10.1 fl (7.4-10.4); MONOCYTE # 0.9 10^3/ul (0.3-0.9); MONOCYTES % 12.1 % (0.0-11.0); NEUTROPHILS % 53.6 % (39.0-77.0); PLATELET COUNT 150 10^3/UL (140-415); RED CELL DISTRIBUTION WIDTH 13.1 % (11.5-14.5); WHITE BLOOD COUNT 7.5 10^3/ul (4.8-10.8)
[2017-01-22 08:59] LABS: INR 2.78; PROTIME 29.7 Sec (12.2-14.2); PT RATIO 2.3
[2017-01-22] MEDS: FUROSEMIDE 20 MG TAB PO SCH (09:00)
[2017-01-22] MEDS: ISOSORBIDE MONONITRATE(SR)30 MG TAB PO SCH (09:01)
[2017-01-22] MEDS: GABAPENTIN 100 MG CAP PO SCH (09:01)
[2017-01-22] MEDS: LISINOPRIL 10 MG TAB PO SCH (09:01)
[2017-01-22] MEDS: FAMOTIDINE 20 MG TAB PO SCH (09:01)
[2017-01-22 09:04] LABS: ALBUMIN 3.8 g/dl (3.3-4.9); ALBUMIN/GLOBULIN RATIO 1.31; BILIRUBIN,INDIRECT 0.8 mg/dl (0-1.1); BILIRUBIN,TOTAL 0.8 mg/dl (0.2-1.3); CREATININE 1.18 mg/dl (0.61-1.24); POTASSIUM 4.1 mmol/L (3.5-5.1); TOTAL PROTEIN 6.7 g/dl (6.1-8.1)
[2017-01-22 09:18] LABS: MAGNESIUM 1.9 mg/dl (1.7-2.5); PHOSPHORUS 4.3 mg/dl (2.5-4.9)
[2017-01-22] MEDS ORDERED: IODIXANOL LOCM 100 ML BTL ONE (12:01)
[2017-01-22] MEDS ORDERED: SOD CHLORIDE 0.9% 100 ML ONE (12:01)
--- NOTE | 2017-01-22 12:45 | RADRPT ---
PROCEDURE: CTA head and neck CLINICAL INDICATION: Headache, neurological deficit. Concern for dissection or aneurysm. TECHNIQUE: The study was performed utilizing multidetector CT scanner. Direct thin section axial s ections were obtained through the head and neck after the uneventful administration of 100 cc of Vis ipaque 320 nonionic intravenous contrast material. Coronal and sagittal as well as maximal intensit y projection reformations were obtained. 3-D images were made. The images were reviewed on a PACS w orkstation. One or more the following does reduction techniques were utilized: Automated exposure co ntrol, adjustment of the mA/ or kV according to patient's size, or use of iterative reconstruction t echnique. The total CTDIvol is 41.25, 18.41 mGy and the DLP is 813.82 mGy-cm. COMPARISON: Brain CT 01/20/2017. FINDINGS: CTA NECK: The origins of the great vessels off the aortic arch are patent without significant stenosis. Mild atherosclerotic calcification of bilateral carotid bulbs are noted. The common carotid and internal carotid arteries are patent without significant stenosis by NASCET criteria. Direct measurements of vessel diameters was made in reference to measurements of the distal internal carotid artery diamete r. The vertebral arteries are also patent without high-grade stenosis. No evidence of dissection is noted. Paraseptal emphysematous changes are noted in the visualized upper lungs, left greater than right. P artial opacification of the right frontoethmoidal recess is noted. Moderate upper thoracic spine levoscoliosis is noted. CTA BRAIN: There are atherosclerosis calcifications of cavernous and supraclinoid segments of the internal moura tid arteries with associated minimal narrowing. The petrous segments of internal carotid arteries a re patent without significant stenosis. The proximal middle cerebral arteries and anterior cerebral arteries are patent without significant stenosis. The intracranial vertebral arteries, basilar scotty ry, and posterior cerebral arteries are also unremarkable without significant stenosis. No aneurysm or vascular malformation is identified. Right cochlear implant with associated artifacts present which degrades surrounding structures image s. Right wall up mastoidectomy defect is seen. There is mild partial opacification of right mastoid air cells. IMPRESSION: 1. Mild narrowing of cavernous and supraclinoid segments of the internal carotid arteries. 2. Mild atherosclerotic calcification of the bilateral carotid bulbs without significant stenosis b y NASCET criteria. 3. Otherwise no significant stenosis in the remainder of major intracranial and neck arteries. 4. No evidence of intracranial aneurysm. No CTA evidence of dissection. RPTAT: UU .Mike Berman MD, MD Date Time Electronically viewed and signed by .Mike Berman MD, MD on 01/22/2017 12:45 .N/
--- NOTE | 2017-01-22 13:06 | PN ---
Date/Time of Note Date/Time of Note DATE: 01/22/17 TIME: 12:57 Assessment/Plan Lines/Catheters IV Catheter Type (from [facility]): Saline Lock Assessment/Plan Assessment/Plan 61-year-old male with: 1. Left-sided chest pain, radiating to the back, findings on CT angiogram nonspecific but concerning for possible vascular abnormality or vasculopathy. Cardiac enzymes negative 3, however patient with ejection fraction of 25%, he is in A. fib but has a tendency to drop his heart rate down to the 40s with delayed response Cardiology evaluation pending. CT surgery evaluation pending. Continue current medications for now. 2. Cardiomyopathy, previous history of rheumatic fever based on records from [facility], status post valvular surgeries with mitral valve replacement with mechanical valve and also tricuspid annuloplasty approximately 20 years ago. 2D echocardiogram as expected with impaired ejection fraction down to 25%, continue diuretics for now. Given the delayed response with his atrial fibrillation, will consult cardiology for evaluation. Continue Coumadin with goal INR 2.5-3.5 3. Chronic atrial fibrillation, again observed episodes of delayed response, on Coumadin already, INR of 3.5 today. Will hold his Coumadin dosing today. 4. Severe headaches, seems to be primarily left-sided also, CAT scan of the head noncontrast negative however patient again last night apparently had a episode of severe left-sided headache, CT angiogram of the head and neck pending. ESR and CRP within normal limit. 4. Hypertension: Continue current medications 5. Hyperlipidemia: Continue statin therapy. Prophylaxis: Already anticoagulated on Coumadin, Pepcid for GI prophylaxis Disposition: CTA head and neck, CT surgery to reevaluate CT angiogram findings in order to make sure that patient not having bleeding currently. Cardiology evaluation. Exam/Review of Systems Vital Signs Vitals Vital Signs Date Time Temp Pulse Resp B/P Pulse Ox O2 Delivery O2 Flow Rate FiO2 01/22/17 12:00 78 01/22/17 11:39 98.2 18 120/57 96 01/20/17 23:00 Room Air Intake and Output 01/21/17 01/21/17 01/22/17 15:00 23:00 07:00 Intake Total 800 ml 300 ml Balance 800 ml 300 ml Results Result Diagram: 01/22/17 0754 01/22/17 0754 Results 24 hrs Laboratory Tests Test 01/22/17 07:54 White Blood Count 7.5 Red Blood Count 4.40 L Hemoglobin 13.1 L Hematocrit 40.1 L Mean Corpuscular Volume 91.1 Mean Corpuscular Hemoglobin 29.8 Mean Corpuscular Hemoglobin Concent 32.7 Red Cell Distribution Width 13.1 Platelet Count 150 Mean Platelet Volume 10.1 Neutrophils % 53.6 Lymphocytes % 31.9 Monocytes % 12.1 H Eosinophils % 1.3 Basophils % 0.7 Nucleated Red Blood Cells % 0.0 Neutrophils # 4.0 Lymphocytes # 2.4 Monocytes # 0.9 Eosinophils # 0.1 Basophils # 0.1 Nucleated Red Blood Cells # 0.0 Prothrombin Time 29.7 H Prothrombin Time Ratio 2.3 INR International Normalized Ratio 2.78 Sodium Level 144 Potassium Level 4.1 Chloride Level 106 Carbon Dioxide Level 28 Anion Gap 14 Blood Urea Nitrogen 14 Creatinine 1.18 Glucose Level 105 Calcium Level 9.0 Phosphorus Level 4.3 Magnesium Level 1.9 Total Bilirubin 0.8 Direct Bilirubin 0.00 Indirect Bilirubin 0.8 Aspartate Amino Transf (AST/SGOT) 17 Alanine Aminotransferase (ALT/SGPT) 27 Alkaline Phosphatase 74 Total Protein 6.7 # Albumin 3.8 # Globulin 2.90 Albumin/Globulin Ratio 1.31 Imaging Free Text/Dictation PROCEDURE: CTA head and neck CLINICAL INDICATION: Headache, neurological deficit. Concern for dissection or aneurysm. TECHNIQUE: The study was performed utilizing multidetector CT scanner. Direct thin section axial sections were obtained through the head and neck after the uneventful administration of 100 cc of Visipaque 320 nonionic intravenous contrast material. Coronal and sagittal as well as maximal intensity projection reformations were obtained. 3-D images were made. The images were reviewed on a PACS workstation. One or more the following does reduction techniques were utilized: Automated exposure control, adjustment of the mA/ or kV according to patient's size, or use of iterative reconstruction technique. The total CTDIvol is 41.25, 18.41 mGy and the DLP is 813.82 mGy-cm. COMPARISON: Brain CT 01/20/2017. FINDINGS: CTA NECK: The origins of the great vessels off the aortic arch are patent without significant stenosis. Mild atherosclerotic calcification of bilateral carotid bulbs are noted. The common carotid and internal carotid arteries are patent without significant stenosis by NASCET criteria. Direct measurements of vessel diameters was made in reference to measurements of the distal internal carotid artery diameter. The vertebral arteries are also patent without high-grade stenosis. No evidence of dissection is noted. Paraseptal emphysematous changes are noted in the visualized upper lungs, left greater than right. Partial opacification of the right frontoethmoidal recess is noted. Moderate upper thoracic spine levoscoliosis is noted. CTA BRAIN: There are atherosclerosis calcifications of cavernous and supraclinoid segments of the internal carotid arteries with associated minimal narrowing. The petrous segments of internal carotid arteries are patent without significant stenosis. The proximal middle cerebral arteries and anterior cerebral arteries are patent without significant stenosis. The intracranial vertebral arteries, basilar artery, and posterior cerebral arteries are also unremarkable without significant stenosis. No aneurysm or vascular malformation is identified. Right cochlear implant with associated artifacts present which degrades surrounding structures images. Right wall up mastoidectomy defect is seen. There is mild partial opacification of right mastoid air cells. IMPRESSION: 1. Mild narrowing of cavernous and supraclinoid segments of the internal carotid arteries. 2. Mild atherosclerotic calcification of the bilateral carotid bulbs without significant stenosis by NASCET criteria. 3. Otherwise no significant stenosis in the remainder of major intracranial and neck arteries. 4. No evidence of intracranial aneurysm. No CTA evidence of dissection. Medications Medications Current Medications Atorvastatin Calcium (Lipitor) 20 mg QHS PO Last administered on 01/21/17 21: 46; Admin Dose 20 MG; Start 01/20/17 at 21:00 Furosemide (Lasix) 20 mg DAILY PO Last administered on 01/22/17 09:00; Admin Dose 20 MG; Start 01/21/17 at 09:00 Gabapentin (Neurontin) 100 mg BID PO Last administered on 01/22/17 09:01; Admin Dose 100 MG; Start 01/20/17 at 21:00 Isosorbide Mononitrate (Imdur) 30 mg DAILY PO Last administered on 01/22/17 09:01; Admin Dose 30 MG; Start 01/21/17 at 09:00 Lisinopril (Zestril) 10 mg DAILY PO Last administered on 01/22/17 09:01; Admin Dose 10 MG; Start 01/21/17 at 09:00 Warfarin Sodium (Coumadin) 2.5 mg DAILY@17 PO ; Start 01/21/17 at 17:00; Status Future hold Ondansetron HCl (Zofran Inj) 4 mg Q6H PRN IV NAUSEA AND/OR VOMITING Last administered on 01/21/17 04:57; Admin Dose 4 MG; Start 01/20/17 at 16:30 Nitroglycerin (Nitroglycerin (Sl Tab) 0.4 Mg) 1 tab Q5M PRN SL CHEST PAIN; Start 01/20/17 at 16:30 Acetaminophen (Tylenol Tab) 650 mg Q6H PRN PO PAIN LEVEL 1-3 OR FEVER; Start 01/20/17 at 16:30 Acetaminophen/ Hydrocodone Bitart (Vina (5/325)) 1 tab Q6H PRN PO PAIN LEVEL 4 -6 Last administered on 01/21/17 11:09; Admin Dose 1 TAB; Start 01/20/17 at 16:30 Morphine Sulfate (morphine) 2 mg Q4H PRN IV PAIN LEVEL 7-10 Last administered on 01/21/17 04:26; Admin Dose 2 MG; Start 01/20/17 at 16:30 Docusate Sodium (Colace) 100 mg Q12H PRN PO CONSTIPATION; Start 01/20/17 at 16 :30 Magnesium Hydroxide (Milk Of Mag) 30 ml DAILY PRN PO CONSTIPATION; Start 01/20 at 16:30 Bisacodyl (Dulcolax Supp) 10 mg DAILY PRN [place] CONSTIPATION; Start 01/20/17 at 16:30 Famotidine (Pepcid) 20 mg Q12 PO Last administered on 01/22/17 09:01; Admin Dose 20 MG; Start 01/20/17 at 21:00 ELEONORA RUST Jan 22, 2017 13:06
--- NOTE | 2017-01-22 13:17 | PN ---
Date/Time of Note Date/Time of Note DATE: 01/22/17 TIME: 13:16 Assessment/Plan Lines/Catheters IV Catheter Type (from [facility]): Saline Lock Assessment/Plan Chief Complaint/Hosp Course IMPRESSION: Mediastinal inflammation, no signs of aortic rupture, no aneurysm, no dissection. RECOMMENDATIONS: Would continue supportive care with repeat CAT scan of the chest in 1 week to reevaluate the inflammatory process. Discuss with the referring physicians. Problems: Subjective 24 Hr Interval Summary Constitutional: improved Pain Control: mild Exam/Review of Systems Vital Signs Vitals Vital Signs Date Time Temp Pulse Resp B/P Pulse Ox O2 Delivery O2 Flow Rate FiO2 01/22/17 12:00 78 01/22/17 11:39 98.2 18 120/57 96 01/20/17 23:00 Room Air Intake and Output 01/21/17 01/21/17 01/22/17 15:00 23:00 07:00 Intake Total 800 ml 300 ml Balance 800 ml 300 ml Exam ENMT: mucosa pink and moist, nl external ears & nose, nl lips & teeth, nl nasal mucosa & septum Neck: non-tender, supple Respiratory: clear to auscultation, normal air movement Cardiovascular: irregular rhythm, nl pulses Results Result Diagram: 01/22/17 0754 01/22/17 0754 JAMEL MAYORGA MD Jan 22, 2017 13:17
--- NOTE | 2017-01-22 13:19 | PN ---
Date/Time of Note Date/Time of Note DATE: 01/22/17 TIME: 13:14 Assessment/Plan VTE Prophylaxis VTE Prophylaxis Intervention: other (Coumadin) Lines/Catheters IV Catheter Type (from [facility]): Saline Lock Assessment/Plan Assessment/Plan 61-year-old male with: 1. Left-sided chest pain, radiating to the back, findings on CT angiogram nonspecific but concerning for possible vascular abnormality or vasculopathy. Cardiac enzymes negative 3, however patient with ejection fraction of 25%, he is in A. fib but has a tendency to drop his heart rate down to the 40s with delayed response Appreciate cardiology recommendation, carvedilol discontinued for now. All other medication continued including Coumadin. Per CT surgery recommendation, likely inflammatory changes around the aortic arch, recommend follow-up CT angiogram in 1 week also referral to Rheumatology. Continue current medications. 2. Cardiomyopathy, previous history of rheumatic fever based on records from [facility], status post valvular surgeries with mitral valve replacement with mechanical valve and also tricuspid annuloplasty approximately 20 years ago. 2D echocardiogram as expected with impaired ejection fraction down to 25%, continue diuretics for now. Given the delayed response with his atrial fibrillation, appreciate cardiology recommendations and the carvedilol has been discontinued. Continue Coumadin with goal INR 2.5-3.5 3. Chronic atrial fibrillation, again observed episodes of delayed response, on Coumadin already, INR of 3.5 today. Continue Coumadin, carvedilol discontinued due to bradycardic episodes. 4. Severe headaches, seems to be primarily left-sided also, CAT scan of the head noncontrast negative however patient again last night apparently had a episode of severe left-sided headache, CT angiogram of the head and neck within normal. ESR and CRP within normal limit. Will refer to rheumatology. No severe headaches during this admission. 4. Hypertension: Continue current medications 5. Hyperlipidemia: Continue statin therapy. Prophylaxis: Already anticoagulated on Coumadin, Pepcid for GI prophylaxis Disposition: Discharge home today with outpatient CT surgery and cardiology follow-up if okay with cardiology. She will also follow-up with PCP and Coumadin clinic. Referral to rheumatology. Subjective 24 Hr Interval Summary Free Text/Dictation Patient doing okay, heart rate has remained in the 70s controlled A. fib, off carvedilol per cardiology. On Coumadin with INR within therapeutic range. Coumadin has been resumed today after 1 dose was held yesterday. All workup so far with the benign findings. CTA head and neck negative. If okay with consult on patient will be discharged home today with a repeat CTA chest in 1 week per cardiothoracic recommendations and outpatient follow-up with Dr. Zamora and cardiology. Exam/Review of Systems Vital Signs Vitals Vital Signs Date Time Temp Pulse Resp B/P Pulse Ox O2 Delivery O2 Flow Rate FiO2 01/22/17 12:00 78 01/22/17 11:39 98.2 18 120/57 96 01/20/17 23:00 Room Air Intake and Output 01/21/17 01/21/17 01/22/17 14:59 22:59 06:59 Intake Total 800 ml 300 ml Balance 800 ml 300 ml Exam Constitutional: alert, oriented, well developed Respiratory: clear to auscultation, normal air movement Cardiovascular: irregular rhythm (Controlled A. fib), nl pulses Gastrointestinal: non-tender, soft Musculoskeletal: nl extremities to inspection, nl gait and stance Extremities: normal pulses Neurological: DIVER TENDER II-XII intact, nl mental status, nl speech, nl strength Results Result Diagram: 01/22/17 0754 01/22/17 0754 Results 24 hrs Laboratory Tests Test 01/22/17 07:54 White Blood Count 7.5 Red Blood Count 4.40 L Hemoglobin 13.1 L Hematocrit 40.1 L Mean Corpuscular Volume 91.1 Mean Corpuscular Hemoglobin 29.8 Mean Corpuscular Hemoglobin Concent 32.7 Red Cell Distribution Width 13.1 Platelet Count 150 Mean Platelet Volume 10.1 Neutrophils % 53.6 Lymphocytes % 31.9 Monocytes % 12.1 H Eosinophils % 1.3 Basophils % 0.7 Nucleated Red Blood Cells % 0.0 Neutrophils # 4.0 Lymphocytes # 2.4 Monocytes # 0.9 Eosinophils # 0.1 Basophils # 0.1 Nucleated Red Blood Cells # 0.0 Prothrombin Time 29.7 H Prothrombin Time Ratio 2.3 INR International Normalized Ratio 2.78 Sodium Level 144 Potassium Level 4.1 Chloride Level 106 Carbon Dioxide Level 28 Anion Gap 14 Blood Urea Nitrogen 14 Creatinine 1.18 Glucose Level 105 Calcium Level 9.0 Phosphorus Level 4.3 Magnesium Level 1.9 Total Bilirubin 0.8 Direct Bilirubin 0.00 Indirect Bilirubin 0.8 Aspartate Amino Transf (AST/SGOT) 17 Alanine Aminotransferase (ALT/SGPT) 27 Alkaline Phosphatase 74 Total Protein 6.7 # Albumin 3.8 # Globulin 2.90 Albumin/Globulin Ratio 1.31 Imaging Free Text/Dictation PROCEDURE: CTA head and neck CLINICAL INDICATION: Headache, neurological deficit. Concern for dissection or aneurysm. TECHNIQUE: The study was performed utilizing multidetector CT scanner. Direct thin section axial sections were obtained through the head and neck after the uneventful administration of 100 cc of Visipaque 320 nonionic intravenous contrast material. Coronal and sagittal as well as maximal intensity projection reformations were obtained. 3-D images were made. The images were reviewed on a PACS workstation. One or more the following does reduction techniques were utilized: Automated exposure control, adjustment of the mA/ or kV according to patient's size, or use of iterative reconstruction technique. The total CTDIvol is 41.25, 18.41 mGy and the DLP is 813.82 mGy-cm. COMPARISON: Brain CT 01/20/2017. FINDINGS: CTA NECK: The origins of the great vessels off the aortic arch are patent without significant stenosis. Mild atherosclerotic calcification of bilateral carotid bulbs are noted. The common carotid and internal carotid arteries are patent without significant stenosis by NASCET criteria. Direct measurements of vessel diameters was made in reference to measurements of the distal internal carotid artery diameter. The vertebral arteries are also patent without high-grade stenosis. No evidence of dissection is noted. Paraseptal emphysematous changes are noted in the visualized upper lungs, left greater than right. Partial opacification of the right frontoethmoidal recess is noted. Moderate upper thoracic spine levoscoliosis is noted. CTA BRAIN: There are atherosclerosis calcifications of cavernous and supraclinoid segments of the internal carotid arteries with associated minimal narrowing. The petrous segments of internal carotid arteries are patent without significant stenosis. The proximal middle cerebral arteries and anterior cerebral arteries are patent without significant stenosis. The intracranial vertebral arteries, basilar artery, and posterior cerebral arteries are also unremarkable without significant stenosis. No aneurysm or vascular malformation is identified. Right cochlear implant with associated artifacts present which degrades surrounding structures images. Right wall up mastoidectomy defect is seen. There is mild partial opacification of right mastoid air cells. IMPRESSION: 1. Mild narrowing of cavernous and supraclinoid segments of the internal carotid arteries. 2. Mild atherosclerotic calcification of the bilateral carotid bulbs without significant stenosis by NASCET criteria. 3. Otherwise no significant stenosis in the remainder of major intracranial and neck arteries. 4. No evidence of intracranial aneurysm. No CTA evidence of dissection. RPTAT: [facility] .Mike Berman MD, MD Date Time Electronically viewed and signed by .Mike Berman MD, MD on 01/22/2017 12:45 Medications Medications Current Medications Atorvastatin Calcium (Lipitor) 20 mg QHS PO Last administered on 01/21/17 21: 46; Admin Dose 20 MG; Start 01/20/17 at 21:00 Furosemide (Lasix) 20 mg DAILY PO Last administered on 01/22/17 09:00; Admin Dose 20 MG; Start 01/21/17 at 09:00 Gabapentin (Neurontin) 100 mg BID PO Last administered on 01/22/17 09:01; Admin Dose 100 MG; Start 01/20/17 at 21:00 Isosorbide Mononitrate (Imdur) 30 mg DAILY PO Last administered on 01/22/17 09:01; Admin Dose 30 MG; Start 01/21/17 at 09:00 Lisinopril (Zestril) 10 mg DAILY PO Last administered on 01/22/17 09:01; Admin Dose 10 MG; Start 01/21/17 at 09:00 Warfarin Sodium (Coumadin) 2.5 mg DAILY@17 PO ; Start 01/21/17 at 17:00; Status Future hold Ondansetron HCl (Zofran Inj) 4 mg Q6H PRN IV NAUSEA AND/OR VOMITING Last administered on 01/21/17 04:57; Admin Dose 4 MG; Start 01/20/17 at 16:30 Nitroglycerin (Nitroglycerin (Sl Tab) 0.4 Mg) 1 tab Q5M PRN SL CHEST PAIN; Start 01/20/17 at 16:30 Acetaminophen (Tylenol Tab) 650 mg Q6H PRN PO PAIN LEVEL 1-3 OR FEVER; Start 01/20/17 at 16:30 Acetaminophen/ Hydrocodone Bitart (Mosinee (5/325)) 1 tab Q6H PRN PO PAIN LEVEL 4 -6 Last administered on 01/21/17 11:09; Admin Dose 1 TAB; Start 01/20/17 at 16:30 Morphine Sulfate (morphine) 2 mg Q4H PRN IV PAIN LEVEL 7-10 Last administered on 01/21/17 04:26; Admin Dose 2 MG; Start 01/20/17 at 16:30 Docusate Sodium (Colace) 100 mg Q12H PRN PO CONSTIPATION; Start 01/20/17 at 16 :30 Magnesium Hydroxide (Milk Of Mag) 30 ml DAILY PRN PO CONSTIPATION; Start 01/20 at 16:30 Bisacodyl (Dulcolax Supp) 10 mg DAILY PRN [place] CONSTIPATION; Start 01/20/17 at 16:30 Famotidine (Pepcid) 20 mg Q12 PO Last administered on 01/22/17 09:01; Admin Dose 20 MG; Start 01/20/17 at 21:00 ELEONORA RUST Jan 22, 2017 13:19
--- NOTE | 2017-01-22 14:29 | PDOCDIS ---
Discharge Instructions CONDITION Patient Condition: Good HOME CARE INSTRUCTIONS: Special Diet: cardiac diet ACTIVITY: Activity Restrictions: Slowly Increase Activity FOLLOW UP/APPOINTMENTS Follow-up Plan Follow-up with cardiothoracic surgery in 1 week, patient needs repeat CT angiogram of the chest with results to be sent to Dr. Zamora Follow-up with primary care physician within 1 week Follow-up with cardiology as previously scheduled within 2 weeks Referral to rheumatology as an outpatient regarding the findings on CT angiogram of an inflammatory changes around aortic arch. ESR and CRP normal. ELEONORA RUST Jan 22, 2017 14:22
--- NOTE | 2017-01-22 16:53 | CONS ---
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 Patient main complaint for presentation was headache, back and shoulder pain and denied anterior chest pain. Denies symptoms exacerbated with activity. Symptoms are also exacerbated by left arm movements. Patient underwent extensive imaging of neck and head. Given his bradycardia, beta loreto to be held at the current time. In discussion with son, patient with known history of "weak heart" for a number of years and has been having exertional shortness of breath for many years, this is not worsened. Patient would benefit from outpatient electrophysiology evaluation for possible ICD. Otherwise Coumadin as per INR. Continue VAISHALI inhibitor if no contraindication. - Consultation Date/Type/Reason Admit Date/Time Jan 20, 2017 at 16:03 Initial Consult Date Type of Consultation: cv 24 HR Interval Summary Free Text/Dictation Extensive discussion had with patient and son at bedside who assisted with translation. Patient main complaint for presentation to the emergency room was worsening headache, back pain and neck pain that was not getting better with only [place]. He denied anterior chest wall pain or complaining of neck and shoulder pain. Activity or exertion does not improve or worsen his symptoms. He is currently feeling better Exam/Review of Systems Vital Signs Vitals Vital Signs Date Time Temp Pulse Resp B/P Pulse Ox O2 Delivery O2 Flow Rate FiO2 01/22/17 16:05 98.0 69 18 120/65 92 01/20/17 23:00 Room Air Intake and Output 01/21/17 01/21/17 01/22/17 15:00 23:00 07:00 Intake Total 800 ml 300 ml Balance 800 ml 300 ml Exam No apparent distress Constitutional: alert, oriented Head: normocephalic Respiratory: other (Coarse breath sounds bilaterally, no wheezing) Cardiovascular: irregular rhythm, other (S1-S2 heard) Gastrointestinal: bowel sounds, non-tender, soft Extremities: other (No significant edema) Results Result Diagram: 01/22/17 0754 01/22/17 0754 Results 24 hrs Laboratory Tests Test 01/22/17 07:54 White Blood Count 7.5 Red Blood Count 4.40 L Hemoglobin 13.1 L Hematocrit 40.1 L Mean Corpuscular Volume 91.1 Mean Corpuscular Hemoglobin 29.8 Mean Corpuscular Hemoglobin Concent 32.7 Red Cell Distribution Width 13.1 Platelet Count 150 Mean Platelet Volume 10.1 Neutrophils % 53.6 Lymphocytes % 31.9 Monocytes % 12.1 H Eosinophils % 1.3 Basophils % 0.7 Nucleated Red Blood Cells % 0.0 Neutrophils # 4.0 Lymphocytes # 2.4 Monocytes # 0.9 Eosinophils # 0.1 Basophils # 0.1 Nucleated Red Blood Cells # 0.0 Prothrombin Time 29.7 H Prothrombin Time Ratio 2.3 INR International Normalized Ratio 2.78 Sodium Level 144 Potassium Level 4.1 Chloride Level 106 Carbon Dioxide Level 28 Anion Gap 14 Blood Urea Nitrogen 14 Creatinine 1.18 Glucose Level 105 Calcium Level 9.0 Phosphorus Level 4.3 Magnesium Level 1.9 Total Bilirubin 0.8 Direct Bilirubin 0.00 Indirect Bilirubin 0.8 Aspartate Amino Transf (AST/SGOT) 17 Alanine Aminotransferase (ALT/SGPT) 27 Alkaline Phosphatase 74 Total Protein 6.7 # Albumin 3.8 # Globulin 2.90 Albumin/Globulin Ratio 1.31 Medications Medications Current Medications Atorvastatin Calcium (Lipitor) 20 mg QHS PO Last administered on 01/21/17 21: 46; Admin Dose 20 MG; Start 01/20/17 at 21:00 Furosemide (Lasix) 20 mg DAILY PO Last administered on 01/22/17 09:00; Admin Dose 20 MG; Start 01/21/17 at 09:00 Gabapentin (Neurontin) 100 mg BID PO Last administered on 01/22/17 09:01; Admin Dose 100 MG; Start 01/20/17 at 21:00 Isosorbide Mononitrate (Imdur) 30 mg DAILY PO Last administered on 01/22/17 09:01; Admin Dose 30 MG; Start 01/21/17 at 09:00 Lisinopril (Zestril) 10 mg DAILY PO Last administered on 01/22/17 09:01; Admin Dose 10 MG; Start 01/21/17 at 09:00 Warfarin Sodium (Coumadin) 2.5 mg DAILY@17 PO ; Start 01/21/17 at 17:00; Status Future hold Ondansetron HCl (Zofran Inj) 4 mg Q6H PRN IV NAUSEA AND/OR VOMITING Last administered on 01/21/17 04:57; Admin Dose 4 MG; Start 01/20/17 at 16:30 Nitroglycerin (Nitroglycerin (Sl Tab) 0.4 Mg) 1 tab Q5M PRN SL CHEST PAIN; Start 01/20/17 at 16:30 Acetaminophen (Tylenol Tab) 650 mg Q6H PRN PO PAIN LEVEL 1-3 OR FEVER; Start 01/20/17 at 16:30 Acetaminophen/ Hydrocodone Bitart ([place] (5/325)) 1 tab Q6H PRN PO PAIN LEVEL 4 -6 Last administered on 01/21/17 11:09; Admin Dose 1 TAB; Start 01/20/17 at 16:30 Morphine Sulfate (morphine) 2 mg Q4H PRN IV PAIN LEVEL 7-10 Last administered on 01/21/17 04:26; Admin Dose 2 MG; Start 01/20/17 at 16:30 Docusate Sodium (Colace) 100 mg Q12H PRN PO CONSTIPATION; Start 01/20/17 at 16 :30 Magnesium Hydroxide (Milk Of Mag) 30 ml DAILY PRN PO CONSTIPATION; Start 01/20 at 16:30 Bisacodyl (Dulcolax Supp) 10 mg DAILY PRN [place] CONSTIPATION; Start 01/20/17 at 16:30 Famotidine (Pepcid) 20 mg Q12 PO Last administered on 01/22/17 09:01; Admin Dose 20 MG; Start 01/20/17 at 21:00 Salomon Mehta DO Jan 22, 2017 16:53
== END 2017-01-22 19:00 | disposition home or self-care (01) | DRG 178 ==
LOC: E/R 11:31 → MS4 16:03
PROVIDERS: ADMIT Internal Medicine; ATTEND Internal Medicine
DX: J98.51 Mediastinitis (principal); I09.0 Rheumatic myocarditis; I10 Essential (primary) hypertension; R51 Headache; E78.5 Hyperlipidemia, unspecified; I48.2 Chronic atrial fibrillation; Z79.01 Long term (current) use of anticoagulants; Z72.0 Tobacco use; H91.90 Unspecified hearing loss, unspecified ear; Z95.2 Presence of prosthetic heart valve
CPT/HCPCS: 36415; 70450; 70496; 70498; 71010; 71275; 80048; 80053; 80061; 82550; 82553; 83036; 83735; 84100; 84484; 85025; 85610; 85651; 85730; 86140; 93005; 93306; 96374; 96375; J2270; J2405; J7040; Q9967